=== PATIENT | female | born 1930 | race Caucasian/White ===

== ENCOUNTER 2018-07-12 00:18 | Inpatient (IN) | payer MEDICAID ==
[~2018-07-12] VITALS: Ht 162.6 cm; Wt 66.6 kg
[~2018-07-12 00:18] MED LIST: ASPI-535 PO; ENAL10TA88 PO; [UNRECOGNIZED DRUG - REMARK]
[2018-07-12] MEDS ORDERED: MELA1TAB15 GTB (03:55)
[2018-07-12] MEDS ORDERED: MULT-105 GTB (03:55)
[2018-07-12] MEDS ORDERED: GABA300C16 GTB (03:55)
[2018-07-12] MEDS ORDERED: TRAM50TA GTB (03:55)
[2018-07-12] MEDS ORDERED: TAMS0.4C2 GTB (03:55)
[2018-07-12] MEDS ORDERED: RANI150T5 GTB (03:55)
[2018-07-12] MEDS ORDERED: ACET325T45 GTB (03:55)
[2018-07-12] MEDS ORDERED: ARGI1POW19 GTB (03:55)
[2018-07-12] MEDS ORDERED: DOCU-144 GTB (03:55)
[2018-07-12] MEDS ORDERED: CAPT25TA3 GTB (03:55)
[2018-07-12] MEDS ORDERED: ALEN70TA5 GTB (03:55)
[2018-07-12] MEDS ORDERED: SENN-120 GTB (03:55)
[2018-07-12] MEDS ORDERED: CRAN3875 GTB (03:55)
[2018-07-12] MEDS ORDERED: GLIP2.5T14 GTB (03:55)
[2018-07-12] MEDS ORDERED: METO-429 GTB (03:55)
[2018-07-12] MEDS ORDERED: ONDANSETRON 4 MG INJ IV STA (04:11)
[2018-07-12] MEDS ORDERED: morphine 2 MG INJ IV STA (04:11)
--- NOTE | 2018-07-12 04:38 | HP ---
Date/Time of Note Date/Time of Note DATE: 07/12/18 TIME: 04:31 Assessment/Plan VTE Prophylaxis SCD applied (from Nsg): Yes (Right lower extremity) SCD contraindicated: other Pharmacological prophylaxis: NA/contraindicated Pharm contraindication: surgical contra Lines/Catheters IV Catheter Type (from Nrsg): Saline Lock Assessment/Plan Hospital Course This is a 87-year-old female being admitted to the [facility] floor for: Assessment: Acute on chronic encephalopathy Left foot and second digit dry gangrene/necrosis Leukocytosis History of dementia History of CVA with History of gastrostomy tube History of anemia chronic disease History of hypertension History of history of coronary artery disease Diabetes mellitus History of osteoarthritis History of UTI History of history of necrotic left third and fourth toe status post amputation History of PVD History of atrial fibrillation Plan: -Close monitoring on the [facility] floor -Stat CT of the brain without contrast -Vancomycin and ceftriaxone IV, IV fluid hydration with normal saline -Urgent ultrasound arterial Dopplers and venous Dopplers of the bilateral lower extremities, left foot x-ray -Podiatry and vascular surgery consult -Nutrition consult -EKG -Swallow evaluation -Resume home medications when patient is cleared to swallow. CODE STATUS: DNR/DNI with selective treatment on POLST form TONYA DAUGHTER [phone], I did speak with the daughter at the bedside regarding the plan of care. She also would like to speak with the specialist and she can come in and speak to them and she has left her number if they would like to color. further treatment strategy will be implemented as per the clinical course. Result Diagram: 07/12/18 0209 07/12/18 0209 Results 24hrs Laboratory Tests Test 07/12/18 02:09 07/12/18 02:34 White Blood Count 12.0 H Red Blood Count 3.51 L Hemoglobin 9.9 L Hematocrit 31.7 L Mean Corpuscular Volume 90.3 Mean Corpuscular Hemoglobin 28.2 L Mean Corpuscular Hemoglobin Concent 31.2 L Red Cell Distribution Width 13.2 Platelet Count 352 Mean Platelet Volume 9.6 Immature Granulocytes % 0.800 H Neutrophils % 72.4 Lymphocytes % 17.5 Monocytes % 8.8 Eosinophils % 0.2 Basophils % 0.3 Nucleated Red Blood Cells % 0.0 Immature Granulocytes # 0.090 H Neutrophils # 8.7 H Lymphocytes # 2.1 Monocytes # 1.1 H Eosinophils # 0.0 Basophils # 0.0 Nucleated Red Blood Cells # 0.0 Sodium Level 140 Potassium Level 4.6 Chloride Level 103 Carbon Dioxide Level 32 H Anion Gap 5 Blood Urea Nitrogen 15 Creatinine 0.53 Est Glomerular Filtrat Rate mL/min Glucose Level 123 Calcium Level 9.0 Total Bilirubin 0.3 Direct Bilirubin 0.00 Indirect Bilirubin 0.3 Aspartate Amino Transf (AST/SGOT) 38 Alanine Aminotransferase (ALT/SGPT) 38 Alkaline Phosphatase 88 Total Protein 6.9 Albumin 3.2 L Globulin 3.70 H Albumin/Globulin Ratio 0.86 Lipase 11 L Urine Color YELLOW Urine Clarity CLEAR Urine pH 6.0 Urine Specific [place] 1.019 Urine Ketones NEGATIVE Urine Nitrite NEGATIVE Urine Bilirubin NEGATIVE Urine Urobilinogen NEGATIVE Urine Leukocyte Esterase NEGATIVE Urine Hemoglobin NEGATIVE Urine Glucose NEGATIVE Urine Total Protein NEGATIVE HPI/ROS Admit Date/Time Admit Date/Time Hx of Present Illness Chief complaint: Left foot second toe necrosis The following history was obtained from the retirement records as well as from the daughter at the bedside as patient was not able to provide history given her confusion and dementia This is a 87-year-old female with a past medical history of diabetes mellitus coronary artery disease peripheral vascular disease and CVA resulting in left- sided weakness and dementia who presents from a retirement with the RN noticing second digit toe changing in color. Patient was also noted to have diminished pedal pulses. Patient was complaining of pain on the left foot. Patient recently was admitted to [facility] for left third and fourth toe amputation secondary to necrosis. Daughter reports that when she returned from the hospital she did not have any discoloration of her foot aside from around the toes. However over the last few days she has noticed discoloration of parts of her foot. Patient currently is being treated with ceftriaxone for 10 days. Daughter does report that at baseline patient gets around in a wheelchair and is able to move herself. She also is able to converse though she does have issues with memory given her dementia. However over the last few days patient has been confused. Allergies: NKDA Medications: See JUN ROS Subjective hx not possible: other (Confused, altered) PMH/Family/Social Past Medical History Dementia History of CVA with chronic left sided weakness Gastrostomy tube Anemia chronic disease Hypertension Coronary artery disease Diabetes mellitus Osteoarthritis UTI Necrotic left third and fourth toe status post amputation PVD Atrial fibrillation Functional debility secondary to stroke Coded Allergies: No Known Allergy (Unverified , 06/08/12) Past Surgical History Gastrostomy tube, left toe third and fourth digit amputation Family History Significant Family History: no pertinent family hx Social History Alcohol Use: none Smoking Status: Never smoker Drug Use: none Exam/Review of Systems Vital Signs Vitals Vital Signs Date Temp Pulse Resp B/P (MAP) Pulse Ox O2 O2 Flow FiO2 Time Delivery Rate 07/12/18 64 20 149/48 100 Room Air 04:06 (81) 07/12/18 3.0 03:00 07/12/18 98.1 00:23 Exam Exam General: Patient is currently lying in bed she appears to be moaning, she does open her eyes but she appears confused HEENT: Atraumatic, normocephalic. The pupils are equal, round and reactive. Extraocular motor are intact Neck: Supple with full range of motion. No rigidity or meningismus Chest: Nontender Lungs: Clear to auscultation bilaterally no crackles rales or wheezing Heart: Normal S1-S2, Regular rhythm and rate. No murmur, S3, or S4 Abdomen: Soft , nontender, nondistended , bowel sounds are present. No guarding no rebound tenderness , No masses or organomegaly. No costovertebral temporal angle mass Extremities: Left lower extremity foot shows gangrene of the second digit. There also appears to be signs of dry gangrene/discoloration of the foot on the lateral plantar surface. Skin: Left lower extremity foot shows gangrene of the second digit. There also appears to be signs of dry gangrene/discoloration of the foot on the lateral plantar surface. Vascular: Diminished distal pedal pulses of the left lower extremity Neurologic: Patient appears confused she is moaning at times, further neurological exam was limited given patient's clinical condition SUE RAIN Jul 12, 2018 04:38
[2018-07-12] MEDS ORDERED: ACETAMINOPHEN 650 MG SUPP PR PRN (05:30)
[2018-07-12] MEDS ORDERED: ONDANSETRON 4 MG INJ IV PRN (05:30)
[2018-07-12] MEDS ORDERED: NACL 0.9% 3 ML SYG IV SCH (05:30)
[2018-07-12] MEDS ORDERED: VANCOMYCIN IV PER PHARMACY XX SCH (05:30)
[2018-07-12] MEDS ORDERED: CEFTRIAXONE 1 GM/50 ML (PMX) 50 ML IVPB SCH (06:00)
[2018-07-12 06:01] VITALS: BMI 21.8
[2018-07-12] MEDS: SOD CHLORIDE 0.9% 1,000 ML IV SCH ×2 (06:08→17:11)
[2018-07-12] MEDS: morphine 2 MG INJ IV PRN (06:09)
[2018-07-12] MEDS ORDERED: VANCOMYCIN 1 GM 250 ML IVPB SCH (06:45)
[2018-07-12] MEDS ORDERED: LORAZEPAM 2 MG INJ IV ONE (07:00)
[2018-07-12] MEDS ORDERED: COLLAGENASE 5 GM (UD JAR) TOP PRN (07:30)
[2018-07-12] MEDS ORDERED: PENDING SANTYL ORDER FOR WOUND CARE XX PRN (07:30)
[2018-07-12 07:55] VITALS: BP 180/72; PULSE 67; RESP 18
[2018-07-12 08:20] VITALS: BP 161/78; PULSE 66
[2018-07-12 08:25] VITALS: PULSE 64
[2018-07-12 08:27] VITALS: BP 157/76; PULSE 64
[2018-07-12] MEDS: COLLAGENASE 5 GM (UD JAR) TOP SCH (09:32)
--- NOTE | 2018-07-12 10:09 | RADRPT ---
Vent Rate: 61 bpm RR Interval: 0 msec VT Interval: 154 msec QRS Duration: 122 msec QT Interval: 420 msec QTC Interval: 422 msec P-R-T [place]: 69 - -6 - 52 degrees Normal sinus rhythm Right bundle branch block Possible Lateral infarct , age undetermined Abnormal ECG Electronically Signed By: Tho Sinclair
--- NOTE | 2018-07-12 11:55 | QN ---
Documentation Comment 87-year-old female with history of v PVD, CVA with left-sided weakness, de mentia, diabetes,Left foot gangrene with status post left third/fourth toe amputation, transferred from correction with worsening Left foot gangrene. Patient appears oversedated as she was given Ativan prior to imaging studies because she was combative. Continue monitoring oxygen saturation and provide supplemental oxygen if indicated. Continue wound care. Vascular and podiatry consultation has been called. Continue antimicrobials. Follow-up cultures. Follow-up CT lower extremity/foot ordered. Follow-up vascular studies. Patient has G-tube and per family, she was getting fed orally and G-tube was used only for medications. Speech therapy and nutrition consult for diet recommendation to promote healing. Start appropriate diet per G-tube per product technician recommendations. Case discussed with Dr. Davies. BROCK MONTGOMERY NP Jul 12, 2018 11:55
[2018-07-12 14:44] VITALS: BP 164/73; PULSE 68; RESP 18
[2018-07-12] MEDS: MUPIROCIN 2% 22 GM OINT TOP SCH ×2 (15:39→22:18)
--- NOTE | 2018-07-12 16:50 | CONS ---
DATE OF ADMISSION: 07/12/2018 DATE OF CONSULTATION: 07/12/2018 REASON FOR CONSULTATION: Left foot gangrene. HISTORY OF PRESENT ILLNESS: This is an 87-year-old female who resides at [facility]. She had been hospitalized approximately a week ago with the left foot infection being treated surgically with amputation of 2 toes. At the time of discharge, the extremity had worsening cyanosis. The rhea ent admitted with left foot gangrene. She had been told prior to that vascular intervention not requ ired. She has had radiographs which revealed soft tissue edema status post amputation of left 3rd an d 4th toes, demineralized changes. The patient's daughter is the main historian as patient nonverbal . PAST MEDICAL HISTORY: Includes history of chronic encephalopathy, dementia, CVA, history of gastroto my tube, history of anemia, hypertension, coronary artery disease, diabetes, UTI, PVD, atrial fibrill ation, gangrene of left foot status post amputation of 3rd and 4th toes, also history of a stroke wit h left-sided weakness. PAST SURGICAL HISTORY: Gastrotomy tube, left 3rd and 4th toe amputation. SOCIAL HISTORY: Denies any tobacco, alcohol or illicit drug use. PHYSICAL EXAMINATION: VITAL SIGNS: Temperature is 99.5, pulse is 67, respiratory rate 18, blood pressure is 180/72, pulse ox is 92%. GENERAL: The patient is awake but not responding to questions. She is in the lateral decubitus. EXTREMITIES: Flexion contracture of the knees. Left foot cool. She has got 2 toes amputated on the left foot with cyanotic changes at the level of the ankle, lateral foot, 2nd toe and plantar toes. Pedal pulses and popliteal pulse nonpalpable. Wound cultures pending. LABORATORIES: WBC 12, hemoglobin 9.9, hematocrit 31.7, platelets 352. Sed rate is 84. Sodium 140, potassium 4.6, chloride of 103, CO2 is 32, BUN 15, creatinine 0.53, albumin is 3.2, globulin is 3.7. Brain CT: Atrophy, white matter disease compatible with chronic small vessel ischemia, encephalomal acia, right MCA distribution infarct, chronic cortical/subcortical white matter infarct in the left p arietal lobe. No intracranial hemorrhage. ASSESSMENT: 1. Left foot ischemia. Gangrene of the left 2nd toe with cyanosis involving the plantar foot, later al foot and anterior ankle. 2. Prior amputation of toes. 3. Osteomyelitis. 4. Leukocytosis. 5. Wbeos-pu-dgvotex encephalopathy. 6. Diabetes. 7. History of atrial fibrillation, coronary artery disease. 8. Dementia. PLAN: The patient is seen. Discussed with family. Initiate topical antiseptic precautions. Clinic ally, the patient has worsening cyanotic changes and the presence of non-pedal pulses and at risk for amputation, unclear on prior vascular workup but noninvasive studies ordered. The patient will need angiography to determine the ability for wound healing. Vascular consulted and local and intravenou s antibiotics started. Currently, she is on vancomycin and ceftriaxone. Recommend ID consultation w macy Adame. Further recommendations pending diagnostic imaging studies. Dictated By: GENTRY ZUÑIGA/PROSPER Conf#: [id number] DID#: [id number] CC: SUE RAIN MD;*EndCC*
--- NOTE | 2018-07-12 18:59 | CONS ---
DATE OF ADMISSION: 07/12/2018 DATE OF CONSULTATION: 07/12/2018 REFERRING PHYSICIAN: Dr. Dong Rain. REASON FOR CONSULTATION: Left foot gangrene. HISTORY OF PRESENT ILLNESS: This is an 87-year-old fairly severely demented woman with status post s troke. She has peripheral arterial disease, diabetes, coronary artery disease, hypertension. She crandall s a gastrostomy. She basically was admitted with left foot gangrene. She had gangrene of the second toe and then the toe was amputated a week ago at another hospital and then in the operating room up when the toe was amputated, the third toe next to it became ischemic, so they amputated that as well. Now, the big toe next to that is also ischemic. She has multiple areas of early skin breakdown ove r the dorsum and heel. Her daughter says prior to that, she was actually able to get around. She wa s walking, but she was in a wheelchair and scoots herself around in the wheelchair and was verbal, bu t now she is completely nonverbal, sort of wiggles around and moves without any purpose. It is not c lear if she has pain. Daughter says she asked her and sometimes she says it hurts, sometimes she munguia s not. I was here at the bedside when they did the arterial studies and there is no Doppler signal in the left foot. The right foot, there is a dopplerable DP and PT. She has ischemia on the right, but no wounds and the left is severely ischemic. PAST MEDICAL HISTORY: Significant for stroke, encephalopathy, dementia, diabetes, hypertension, abhijeet pheral arterial disease, coronary artery disease, AFib. MEDICATIONS: Consist of: 1. Ativan 2. Vancomycin. 3. Ceftriaxone. 4. Zofran. 5. Tylenol. 6. Morphine. 7. Vancomycin. ALLERGIES: HE HAS NO KNOWN DRUG ALLERGIES. SOCIAL HISTORY: She is a nonsmoker. She is living in a [facility] facility. PAST SURGICAL HISTORY: Significant for the left third and fourth toe amputation last week and then a gastrostomy tube. FAMILY HISTORY: Noncontributory. REVIEW OF SYSTEMS: She is just not able to provide any history or any review of systems. PHYSICAL EXAMINATION GENERAL: She is an elderly woman. She is very demented. She is not really responsive and is kind of moving around and wiggling her legs purposelessly. NECK: She has 2+ carotid, radial and brachial pulses bilaterally. LUNGS: Clear. HEART: Regular rate and rhythm. ABDOMEN: Soft, nontender, nondistended. EXTREMITIES: She has 2+ femoral pulses bilaterally. I do not feel popliteal, DP or PT pulses in eit her lower extremity. Right foot is warm. There are no wounds or discoloration. On her eft foot, th e third and fourth toe amputation site is very ischemic looking. The plantar surface at the base of the amputation is necrotic. It has thick cyanosis. There are multiple areas of thick cyanosis over the dorsum and the heel. The foot is basically cool and it is warm. Left leg is warm down to the di stal calf, but then the foot itself is cool. Again, the arterial study shows severe ischemia in the left lower extremity. IMPRESSION: 1. Left foot gangrene. I did not think it is salvageable and she is not a revascularization wero te given her severe dementia and nonambulatory status. I had a long talk with her daughter. I have recommended hospice, just painting the foot and the toes with Betadine, allowing it to mummify and ju st keeping her comfortable. I offered the alternative, but I think an above-knee amputation would be better than the below-knee given the sort of purposelessness movements and wiggling around. I think if we did a below-knee amputation, the stump would probably breakdown just from her pushing against the bed, but I offered this as options and the daughter is going to talk to her brother and they will decide. She said the brother does not want to have any further surgery, so I think they are leaning towards hospice care. I am available if there are any further issues. Dictated By: MAYDA PADILLA/PROSPER Conf#: [id number] DID#: [id number] CC: DONG RAIN MD; ASIA GONZALEZ MD;*EndCC*
[2018-07-12 20:08] VITALS: BP 179/76; PULSE 89; RESP 18
[2018-07-12] MEDS: RANITIDINE 150 MG TAB GTB SCH (21:42)
[2018-07-12] MEDS: traMADol 50 MG TAB GTB PRN (21:43)
[2018-07-12] MEDS: AMLODIPINE 5 MG TAB PO SCH (22:17)
[2018-07-12] MEDS: SENNA TAB GTB SCH (22:18)
[2018-07-12] MEDS: PIPER-TAZO 3.375 GM IV (PMX) 100 ML IVPB SCH (23:27)
[2018-07-13] MEDS ORDERED: PIPER-TAZO 3.375 GM IV (PMX) 100 ML IVPB SCH
[2018-07-13] MEDS: morphine 2 MG INJ IV PRN (01:24)
[2018-07-13 02:11] VITALS: BP 134/66; PULSE 115; PULSE 98; RESP 18
[2018-07-13] MEDS: PIPER-TAZO 3.375 GM IV (PMX) 100 ML IVPB SCH ×3 (05:56→21:30)
[2018-07-13] MEDS: SOD CHLORIDE 0.9% 1,000 ML IV SCH ×2 (06:15→18:12)
[2018-07-13 08:04] VITALS: BP 118/55; PULSE 79; RESP 18
[2018-07-13] MEDS: COLLAGENASE 5 GM (UD JAR) TOP SCH (08:23)
[2018-07-13] MEDS: VANCOMYCIN 1 GM 250 ML IVPB SCH (08:23)
[2018-07-13] MEDS: RANITIDINE 150 MG TAB GTB SCH ×2 (08:24→21:18)
[2018-07-13] MEDS: MUPIROCIN 2% 22 GM OINT TOP SCH ×2 (08:24→21:27)
[2018-07-13] MEDS: AMLODIPINE 5 MG TAB PO SCH (08:24)
--- NOTE | 2018-07-13 10:51 | CONS ---
DATE OF ADMISSION: 07/12/2018 DATE OF CONSULTATION: 07/13/2018 TYPE OF CONSULTATION: Infectious Disease. REASON FOR CONSULTATION: Antibiotic management. HISTORY OF PRESENT ILLNESS: The patient is an 87-year-old female who comes in with numerous problems including left foot and second digit dry gangrene, problems include: 1. Acute on chronic encephalopathy. 2. Left foot and second digit dry gangrene with necrosis. 3. Senile dementia. 4. History of cerebrovascular accident. 5. Status post G-tube placement. 6. Anemia of chronic disease. 7. Hypertension. 8. Adult-onset diabetes mellitus. 9. Coronary artery disease. 10. Osteoarthritis. 11. History of urinary tract infection. 12. History of necrotic left 3rd and 4th toe status post amputation. 13. History of peripheral vascular disease. 14. Atrial fibrillation. On admission, the patient's white count was 12,000, hemoglobin and hematocrit 9.9 and 31.7, platelet count 352,000. BUN and creatinine 15/0.53. The patient was started on vancomycin and ceftriaxone an d arterial and vascular surgery consultants were ordered. An urgent ultrasound arterial Doppler's an d venous Doppler's of bilateral lower extremities were ordered. The patient has cerebrovascular acci dent with left-sided weakness, transferred from senior care with worsening left foot gangrene. The patient was seen by Dr. Guerra. He noted left foot ischemia, gangrene of the left second toe, cyano sis involving the plantar foot, lateral foot and anterior ankle, prior amputation of toes, osteomyeli tis, and leukocytosis. The patient has worsening cyanotic changes. She is currently on vancomycin a nd ceftriaxone. PHYSICAL EXAMINATION: VITAL SIGNS: Stable. SKIN: Without generalized rash. HEENT: Within normal limits. NECK: Supple. LYMPH NODES: None palpable. CHEST: Decreased breath sounds at the bases. HEART: Without murmur or gallop. ABDOMEN: Soft, nontender. G-tube in place without induration or erythema. EXTREMITIES: Without cyanosis or clubbing. She has flexion contractures of the knees. Left foot is cool. She has 2 toes amputated on the left foot with cyanotic changes at the level of the ankle on the lateral foot second toe and plantar toes. She had amputation of the third and fourth toes. Puls es are not palpable. RECTAL AND GENITAL: Deferred. NEUROLOGIC: The patient has senile dementia. Moves all extremities. IMPRESSION AND PLAN: Continue on current antibiotic therapy. The patient is a DNR and family is rel uctant to do any further surgery. We will follow along in her care. I will dictate my findings to feliciano cardona hospitalist and to Dr. Guerra. Of note, is the fact that one blood culture grew out gram-positiv e cocci in clusters. We will await the identification that is 04/12. She is currently on vancomycin a nd Zosyn. Dictated By: NEGRITA MOSQUEDA MD, JD/NTS Conf#: [id number] DID#: [id number] CC: GENTRY GUERRA DPM; SUE RAIN MD;*[facility]*
--- NOTE | 2018-07-13 12:11 | PN ---
Date/Time of Note Date/Time of Note DATE: 07/13/18 TIME: 12:10 Assessment/Plan VTE Prophylaxis Risk score (from Ns)>0 risk: 6 SCD applied (from Nsg): Yes Pharmacological prophylaxis: LMWH Lines/Catheters IV Catheter Type (from Nrsg): Saline Lock Urinary Cath still in place: No Assessment/Plan Hospital Course SUBJECTIVE: Awake, lying in bed, no acute distress. OBJECTIVE: Vital signs-see below PHYSICAL EXAM: Constitutional: Elderly, demented female, not in acute distress. Psych: Demented, unable to assess.Restless at times. Head: atraumatic, normocephalic Eyes: nl conjunctiva, nl sclera ENMT: mucosa pink and moist, nl external ears & nose Neck: non-tender, supple Respiratory: clear to auscultation, normal air movement Cardiovascular: nl pulses, regular rate and rhythm Gastrointestinal: non-tender, soft, bowel sounds active in all 4 quadrants. Musculoskeletal/extremities: No DP pulse bilaterally. Left foot 3r/4th toes amputed- site nectrotic/cyanotic extending to heel. no focal defecit. Neurological: Demented. Disrientedx3 Skin: nl turgor ASSESSMENT/PLAN: 87-year-old female with history of diabetes, CAD, hypertension, peripheral artery disease, stroke, dementia, G-tube feeding, admitted with worsening left foot gangrene from a long-term. 1. Left foot gangrene with severe PAD. -Arterial studies with occluded left DP artery, distal left superficial femoral artery with reconstitution of the popliteal artery. -Vascular following and patient is unfortunately not a candidate for any revascularization procedures given her dementia and nonambulatory status. At this time, her limp is not salvageable and option available is above-knee amputation for which family is Not receptive to it. They are considering hospice focused care for which I have placed a social media marketing analyst consult. -Continue supportive care recommended by vascular surgeon by painting the food and toes with Betadine allowing it to mummify and just keep patient comfortable. -WC growing GNR-Cont.abx and f/u final CS -BC 1/2 set growing gram + 2.Severe PAD -Continue to optimize neurovascular status with antihypertensives to keep blood pressure ~140/90, diet, nutrition, exercise, blood glucose control, and antiplatelets/anticoagulation. 3. DMII -Controlled. Continue insulin regimen. 4. Chronic anemia. -Stable H&H. Continue to monitor. 5. Chronic encephalopathy/Dementia -Continue supportive care. 6. History of CVA dysphagia with enteral feeding. -According to patient's family, she was able to have oral gratification, as such I have placed the official speech evaluation to recommend the best diet for her. For now, continue G-tube feeding to meet her nutritional needs. Dietary-to add diet supplement to aid wound healing. 7. Coronary artery disease. -Continue medical management. -Add aspirin 8. Hypertension. Under control. -Continue current Antihypertensive regimen. 9. Peripheral neuropathy. -Resume gabapentin. 10. Constipation -Continue stool softeners and laxatives. 11.Osteoarthritis -resume home meds DVT prophylaxis: Lovenox PUD prophylaxis: Pepcid CODE STATUS: DNR/DNI Diet: G-tube feeding for now until cleared from speech eval to start oral gratification. Disposition: Continue current management. BC / set growing gram positive, f/u final CS. whanau support worker to meet with patient's family regarding hospice discussion and discharge planning based on family decision. Continue antibiotics, follow-up cultures. Patient was seen in collaboration with Result Diagram: 07/13/18 0552 07/13/18 0552 Results 24hrs Laboratory Tests Test 07/13/18 05:52 White Blood Count 12.7 H Red Blood Count 4.07 L Hemoglobin 11.5 L Hematocrit 36.3 L Mean Corpuscular Volume 89.2 Mean Corpuscular Hemoglobin 28.3 L Mean Corpuscular Hemoglobin Concent 31.7 L Red Cell Distribution Width 13.1 Platelet Count 313 Mean Platelet Volume 10.2 Immature Granulocytes % 1.200 H Neutrophils % 78.1 H Lymphocytes % 12.8 L Monocytes % 7.3 Eosinophils % 0.3 Basophils % 0.3 Nucleated Red Blood Cells % 0.0 Immature Granulocytes # 0.150 H Neutrophils # 9.9 H Lymphocytes # 1.6 Monocytes # 0.9 Eosinophils # 0.0 Basophils # 0.0 Nucleated Red Blood Cells # 0.0 Sodium Level 137 Potassium Level 4.1 Chloride Level 101 Carbon Dioxide Level 27 Anion Gap 9 Blood Urea Nitrogen 12 Creatinine 0.53 Est Glomerular Filtrat Rate mL/min Glucose Level 158 Hemoglobin A1c 6.3 H Calcium Level 9.1 Total Bilirubin 0.3 Direct Bilirubin 0.00 Indirect Bilirubin 0.3 Aspartate Amino Transf (AST/SGOT) 52 H Alanine Aminotransferase (ALT/SGPT) 36 Alkaline Phosphatase 108 Total Protein 7.2 Albumin 3.4 Globulin 3.80 H Albumin/Globulin Ratio 0.89 Triglycerides Level 75 Cholesterol Level 140 LDL Cholesterol, Calculated 87 HDL Cholesterol 38 Cholesterol/HDL Ratio 3.6 Thyroid Stimulating Hormone (TSH) 1.720 Exam/Review of Systems Exam Vitals Vital Signs Date Temp Pulse Resp B/P (MAP) Pulse Ox O2 O2 Flow FiO2 Time Delivery Rate 07/13/18 98.5 79 18 118/55 96 Room Air 08:04 (76) 07/12/18 3.0 03:00 Intake and Output 07/12/18 07/12/18 07/13/18 1515:00 23:00 07:00 IntakeIntake Total 20 ml 200 ml BalanceBalance 20 ml 200 ml Results Results 24hrs Laboratory Tests Test 07/13/18 05:52 White Blood Count 12.7 H Red Blood Count 4.07 L Hemoglobin 11.5 L Hematocrit 36.3 L Mean Corpuscular Volume 89.2 Mean Corpuscular Hemoglobin 28.3 L Mean Corpuscular Hemoglobin Concent 31.7 L Red Cell Distribution Width 13.1 Platelet Count 313 Mean Platelet Volume 10.2 Immature Granulocytes % 1.200 H Neutrophils % 78.1 H Lymphocytes % 12.8 L Monocytes % 7.3 Eosinophils % 0.3 Basophils % 0.3 Nucleated Red Blood Cells % 0.0 Immature Granulocytes # 0.150 H Neutrophils # 9.9 H Lymphocytes # 1.6 Monocytes # 0.9 Eosinophils # 0.0 Basophils # 0.0 Nucleated Red Blood Cells # 0.0 Sodium Level 137 Potassium Level 4.1 Chloride Level 101 Carbon Dioxide Level 27 Anion Gap 9 Blood Urea Nitrogen 12 Creatinine 0.53 Est Glomerular Filtrat Rate mL/min Glucose Level 158 Hemoglobin A1c 6.3 H Calcium Level 9.1 Total Bilirubin 0.3 Direct Bilirubin 0.00 Indirect Bilirubin 0.3 Aspartate Amino Transf (AST/SGOT) 52 H Alanine Aminotransferase (ALT/SGPT) 36 Alkaline Phosphatase 108 Total Protein 7.2 Albumin 3.4 Globulin 3.80 H Albumin/Globulin Ratio 0.89 Triglycerides Level 75 Cholesterol Level 140 LDL Cholesterol, Calculated 87 HDL Cholesterol 38 Cholesterol/HDL Ratio 3.6 Thyroid Stimulating Hormone (TSH) 1.720 Medications Medication Current Medications Sodium Chloride 1,000 ml @ 80 mls/hr [id number] IV Last administered on 07/12/18 06:08; Admin Dose 80 MLS/HR; Start 07/12/18 at 05:15 IV Flush (NS 3 ml) 3 ml PER PROTOCOL IV ; Start 07/12/18 at 05:30 Ondansetron HCl (Zofran Inj) 4 mg Q6H PRN IV NAUSEA/VOMITING; Start 07/12/18 at 05:30 Acetaminophen (Tylenol Supp) 650 mg Q6H PRN [place] .PAIN 1-3 OR TEMP; Start 07/12/18 at 05:30 Morphine Sulfate (morphine) 1 mg Q4H PRN IV .SEVERE PAIN 7-10 Last administered on 07/13/18 01:24; Admin Dose 1 MG; Start 07/12/18 at 05:30 Vancomycin HCl (Vanco Iv Per Pharmacy) VANCOMYCIN PER PHARMACY PER PROTOCOL XX ; Start 07/12/18 at 05:30 Miscellaneous Information (Pending Santyl Order For Wound Care) This patient crandall... PRN PRN XX WOUND CARE; Start 07/12/18 at 07:30 Collagenase (Santyl) 1 applic DAILY TOP Last administered on 07/13/18 08:23; Admin Dose 1 APPLIC; Start 07/12/18 at 09:00 Collagenase (Santyl) 1 applic PRN PRN TOP WHEN SOILED; Start 07/12/18 at 07:30 Mupirocin (Bactroban) 1 applic BID TOP Last administered on 07/13/18 08:24; Admin Dose 1 APPLIC; Start 07/12/18 at 13:30 Vancomycin HCl 250 ml @ 125 mls/hr Q24H IVPB Last administered on 07/13/18 08:23; Admin Dose 125 MLS/HR; Start 07/13/18 at 08:00 Captopril (Capoten) 25 mg BID GTB Last administered on 07/13/18 08:24; Admin Dose 25 MG; Start 07/12/18 at 21:00 Ranitidine HCl (Zantac) 150 mg BID GTB Last administered on 07/13/18 08:24; Admin Dose 150 MG; Start 07/12/18 at 21:00 Senna (Senokot) 2 tab QHS GTB Last administered on 4/3/19at 22:18; Admin Dose 2 TAB; Start 07/12/18 at 21:00 Tramadol HCl (Ultram) 50 mg Q12 PRN GTB PAIN Last administered on 07/12/18at 21:43; Admin Dose 50 MG; Start 07/12/18 at 20:30 Amlodipine Besylate (Norvasc) 5 mg DAILY PO Last administered on 07/13/18 08:24; Admin Dose 5 MG; Start 07/12/18 at 22:00 Piperacillin Sod/ Tazobactam Sod 100 ml @ 200 mls/hr Q8 IVPB Last administered on 07/13/18at 05:56; Admin Dose 200 MLS/HR; Start 07/12/18 at 22:00 BROCK MONTGOMERY NP Jul 13, 2018 12:11
[2018-07-13] MEDS: ASPIRIN 81 MG TAB PO SCH (13:56)
[2018-07-13] MEDS: GABAPENTIN 300 MG CAP GTB SCH ×2 (13:56→21:19)
[2018-07-13 14:36] VITALS: BP 169/66; PULSE 79; RESP 20
[2018-07-13 14:53] VITALS: BP 123/59
[2018-07-13 20:05] VITALS: BP 110/53; PULSE 60; RESP 16
[2018-07-13] MEDS ORDERED: DOCUSATE SODIUM 100 MG CAP PO SCH (21:00)
[2018-07-13] MEDS: SENNA TAB GTB SCH (21:18)
[2018-07-13] MEDS: FAMOTIDINE 20 MG TAB GTB SCH (21:19)
[2018-07-13] MEDS: METOPROLOL 50 MG TAB GTB SCH (21:21)
[2018-07-14 02:00] VITALS: BP 161/68; PULSE 58; RESP 18
[2018-07-14 03:00] VITALS: BP 143/64; PULSE 59; RESP 18
[2018-07-14] MEDS: SOD CHLORIDE 0.9% 1,000 ML IV SCH ×2 (03:14→19:45)
[2018-07-14] MEDS: PIPER-TAZO 3.375 GM IV (PMX) 100 ML IVPB SCH ×2 (06:00→08:34)
[2018-07-14] MEDS: traMADol 50 MG TAB GTB PRN (06:17)
[2018-07-14] MEDS: GABAPENTIN 300 MG CAP GTB SCH ×3 (06:17→21:27)
[2018-07-14 08:00] VITALS: BP 158/66; PULSE 70; RESP 20
[2018-07-14] MEDS: DOCUSATE SODIUM 10 MG/ML (10ML CUP) GTB SCH ×2 (08:31→21:27)
[2018-07-14] MEDS: ENOXAPARIN 30 MG/0.3 ML SYG SC SCH (08:31)
[2018-07-14] MEDS: ZINC SULFATE 220 MG CAP GTB SCH (08:34)
[2018-07-14] MEDS: ASCORBIC ACID 500 MG TAB GTB SCH (08:34)
[2018-07-14] MEDS: METOPROLOL 50 MG TAB GTB SCH ×2 (08:35→21:29)
[2018-07-14] MEDS: AMLODIPINE 5 MG TAB PO SCH (08:35)
[2018-07-14] MEDS: MULTIVITAMINS/MINERALS TAB PO SCH (08:35)
[2018-07-14] MEDS: ASPIRIN 81 MG TAB PO SCH (08:35)
[2018-07-14] MEDS: RANITIDINE 150 MG TAB GTB SCH ×2 (08:35→21:27)
[2018-07-14] MEDS: COLLAGENASE 5 GM (UD JAR) TOP SCH (08:36)
[2018-07-14] MEDS: MUPIROCIN 2% 22 GM OINT TOP SCH ×2 (08:36→22:40)
[2018-07-14] MEDS: VANCOMYCIN 1 GM 250 ML IVPB SCH (09:41)
[2018-07-14] MEDS ORDERED: LIDOCAINE 1% (MPF) 5 ML VIAL SC ONE (12:00)
--- NOTE | 2018-07-14 12:02 | PN ---
Date/Time of Note Date/Time of Note DATE: 07/14/18 TIME: 11:46 Assessment/Plan VTE Prophylaxis Risk score (from Ns)>0 risk: 5 SCD applied (from Ns): Yes Pharmacological prophylaxis: LMWH Lines/Catheters IV [facility] Type [facility]from [facility] Saline Lock Urinary Cath still in place: No Assessment/Plan Hospital Course SUBJECTIVE: Awake, lying in bed, no acute distress. OBJECTIVE: Vital signs-see below PHYSICAL EXAM: Constitutional: Elderly, demented female, not in acute distress. Psych: Demented, unable to assess.Restless at times. Head: atraumatic, normocephalic Eyes: nl conjunctiva, nl sclera ENMT: mucosa pink and moist, nl external ears & nose Neck: non-tender, supple Respiratory: clear to auscultation, normal air movement Cardiovascular: nl pulses, regular rate and rhythm Gastrointestinal: non-tender, soft, bowel sounds active in all 4 quadrants. Musculoskeletal/extremities: No DP pulse bilaterally. Left foot 3r/4th toes amputed- site nectrotic/cyanotic extending to heel. no focal defecit. Neurological: Demented. Disrientedx3 Skin: nl turgor ASSESSMENT/PLAN: 87-year-old female with history of diabetes, CAD, hypertension, peripheral artery disease, stroke, dementia, G-tube feeding, admitted with worsening left foot gangrene from a detention. 1. Left foot gangrene with severe PAD. -Arterial studies with occluded left DP artery, distal left superficial femoral artery with reconstitution of the popliteal artery. -Vascular following and patient is unfortunately not a candidate for any revascularization procedures given her dementia and nonambulatory status. At this time, her limp is not salvageable and option available is above-knee amputation for which family is Not receptive to it. They are considering hospice focused care -Continue supportive care recommended by vascular surgeon by painting the food and toes with Betadine allowing it to mummify and just keep patient comfortable. -WC w/multidrug resistant enterococcus/proteus M=>ID managing antimicrobials -BC growing staph 2.Sepsis w/staph bacteremia -cont.abx and follow cultures 3.Severe PAD -See #1 -Continue to optimize neurovascular status with antihypertensives to keep blood pressure ~140/90, diet, nutrition, exercise, blood glucose control, and antiplatelets/anticoagulation. 4. DMII -Controlled. Continue insulin regimen. 5. Chronic anemia. -Stable H&H. Continue to monitor. 6. Chronic encephalopathy/Dementia -Continue supportive care. 7. History of CVA dysphagia with enteral feeding. -Failed ST evaluation. Continue G-tube feeding. -cont.vit supplements 8. Coronary artery disease. -Continue medical management. -cont. aspirin 9. Hypertension. Under control. -Continue current Antihypertensive regimen. 10. Peripheral neuropathy. -cont. gabapentin. 11. Constipation -Continue stool softeners and laxatives. 12.Osteoarthritis -cont home meds DVT prophylaxis: Lovenox PUD prophylaxis: Pepcid CODE STATUS: DNR/DNI Diet: G-tube feeding Disposition: Continue current management. BC both sets growing staph. Follow-up final cultures. I had a lengthy discussion with patient's daughter Ralph who is deciding on hospice focused care which they will get back to us by tomorrow. For now continue current management. PICC line insertion for antibiotics and pain meds. Patient was seen in collaboration with Result Diagram: 07/14/18 0501 07/14/18 0501 Results 24hrs Laboratory Tests Test 07/14/18 05:01 White Blood Count 11.8 H Red Blood Count 3.59 L Hemoglobin 10.0 L Hematocrit 32.6 L Mean Corpuscular Volume 90.8 Mean Corpuscular Hemoglobin 27.9 L Mean Corpuscular Hemoglobin Concent 30.7 L Red Cell Distribution Width 13.2 Platelet Count 315 Mean Platelet Volume 10.3 Immature Granulocytes % 0.800 H Neutrophils % 75.8 Lymphocytes % 15.1 Monocytes % 7.4 Eosinophils % 0.6 Basophils % 0.3 Nucleated Red Blood Cells % 0.0 Immature Granulocytes # 0.090 H Neutrophils # 9.0 H Lymphocytes # 1.8 Monocytes # 0.9 Eosinophils # 0.1 Basophils # 0.0 Nucleated Red Blood Cells # 0.0 Sodium Level 140 Potassium Level 4.2 Chloride Level 105 Carbon Dioxide Level 31 Anion Gap 4 L Blood Urea Nitrogen 15 Creatinine 0.53 Est Glomerular Filtrat Rate mL/min Glucose Level 175 Calcium Level 8.1 L Total Bilirubin 0.2 Direct Bilirubin 0.00 Indirect Bilirubin 0.2 Aspartate Amino Transf (AST/SGOT) 53 H Alanine Aminotransferase (ALT/SGPT) 49 Alkaline Phosphatase 96 Total Protein 6.3 Albumin 2.9 L Globulin 3.40 H Albumin/Globulin Ratio 0.85 Exam/Review of Systems Exam Vitals Vital Signs Date Temp Pulse Resp B/P (MAP) Pulse Ox O2 O2 Flow FiO2 Time Delivery Rate 07/14/18 98.6 70 20 158/66 96 08:00 (96) 07/13/18 Room Air 14:36 07/12/18 3.0 03:00 Intake and Output 07/13/18 07/13/18 07/14/18 1515:00 23:00 07:00 IntakeIntake Total 350 ml 1540 ml BalanceBalance 350 ml 1540 ml Results Results 24hrs Laboratory Tests Test 07/14/18 05:01 White Blood Count 11.8 H Red Blood Count 3.59 L Hemoglobin 10.0 L Hematocrit 32.6 L Mean Corpuscular Volume 90.8 Mean Corpuscular Hemoglobin 27.9 L Mean Corpuscular Hemoglobin Concent 30.7 L Red Cell Distribution Width 13.2 Platelet Count 315 Mean Platelet Volume 10.3 Immature Granulocytes % 0.800 H Neutrophils % 75.8 Lymphocytes % 15.1 Monocytes % 7.4 Eosinophils % 0.6 Basophils % 0.3 Nucleated Red Blood Cells % 0.0 Immature Granulocytes # 0.090 H Neutrophils # 9.0 H Lymphocytes # 1.8 Monocytes # 0.9 Eosinophils # 0.1 Basophils # 0.0 Nucleated Red Blood Cells # 0.0 Sodium Level 140 Potassium Level 4.2 Chloride Level 105 Carbon Dioxide Level 31 Anion Gap 4 L Blood Urea Nitrogen 15 Creatinine 0.53 Est Glomerular Filtrat Rate mL/min Glucose Level 175 Calcium Level 8.1 L Total Bilirubin 0.2 Direct Bilirubin 0.00 Indirect Bilirubin 0.2 Aspartate Amino Transf (AST/SGOT) 53 H Alanine Aminotransferase (ALT/SGPT) 49 Alkaline Phosphatase 96 Total Protein 6.3 Albumin 2.9 L Globulin 3.40 H Albumin/Globulin Ratio 0.85 Medications Medication Current Medications Sodium Chloride 1,000 ml @ 80 mls/hr [id number] IV Last administered on 07/14/18at 03:14; Admin Dose 80 MLS/HR; Start 07/12/18 at 05:15 IV Flush (NS 3 ml) 3 ml PER PROTOCOL IV ; Start 07/12/18 at 05:30 Ondansetron HCl (Zofran Inj) 4 mg Q6H PRN IV NAUSEA/VOMITING; Start 07/12/18 at 05:30 Acetaminophen (Tylenol Supp) 650 mg Q6H PRN [place] .PAIN 1-3 OR TEMP; Start 07/12/18 at 05:30 Morphine Sulfate (morphine) 1 mg Q4H PRN IV .SEVERE PAIN 7-10 Last administered on 07/13/18 01:24; Admin Dose 1 MG; Start 07/12/18 at 05:30 Vancomycin HCl (Vanco Iv Per Pharmacy) VANCOMYCIN PER PHARMACY PER PROTOCOL XX ; Start 07/12/18 at 05:30 Miscellaneous Information (Pending Santyl Order For Wound Care) This patient crandall... PRN PRN XX WOUND CARE; Start 07/12/18 at 07:30 Collagenase (Santyl) 1 applic DAILY TOP Last administered on 07/14/18 08:36; Admin Dose 1 APPLIC; Start 07/12/18 at 09:00 Collagenase (Santyl) 1 applic PRN PRN TOP WHEN SOILED; Start 07/12/18 at 07:30 Mupirocin (Bactroban) 1 applic BID TOP Last administered on 07/14/18 08:36; Admin Dose 1 APPLIC; Start 07/12/18 at 13:30 Vancomycin HCl 250 ml @ 125 mls/hr Q24H IVPB Last administered on 07/14/18 09:41; Admin Dose 125 MLS/HR; Start 07/13/18 at 08:00 Captopril (Capoten) 25 mg BID GTB Last administered on 07/14/18 08:36; Admin Dose 25 MG; Start 07/12/18 at 21:00 Ranitidine HCl (Zantac) 150 mg BID GTB Last administered on 07/14/18 08:35; Admin Dose 150 MG; Start 07/12/18 at 21:00 Senna (Senokot) 2 tab QHS GTB Last administered on 07/13/18 21:18; Admin Dose 2 TAB; Start 07/12/18 at 21:00 Tramadol HCl (Ultram) 50 mg Q12 PRN GTB PAIN Last administered on 07/14/18 06:17; Admin Dose 50 MG; Start 07/12/18 at 20:30 Amlodipine Besylate (Norvasc) 5 mg DAILY PO Last administered on 07/14/18 08:35; Admin Dose 5 MG; Start 07/12/18 at 22:00 Piperacillin Sod/ Tazobactam Sod 100 ml @ 200 mls/hr Q8 IVPB Last administered on 07/14/18 08:34; Admin Dose 200 MLS/HR; Start 07/12/18 at 22:00 Aspirin (Aspirin) 81 mg DAILY PO Last administered on 07/14/18 08:35; Admin Dose 81 MG; Start 07/13/18 at 12:30 Alendronate Sodium (Fosamax) 70 mg We@0655 PO ; Start 07/19/18 at 06:55 Gabapentin (Neurontin) 300 mg Q8 GTB Last administered on 07/14/18 06:17; Admin Dose 300 MG; Start 07/13/18 at 14:00 Metoprolol Tartrate (Lopressor) 50 mg BID GTB Last administered on 07/14/18 08:35; Admin Dose 50 MG; Start 07/13/18 at 21:00 Multivitamins/ Minerals (Theragran-M) 1 tab DAILY PO Last administered on 07/14/18 08:35; Admin Dose 1 TAB; Start 07/14/18 at 09:00 Enoxaparin Sodium (Lovenox) 30 mg DAILY SC Last administered on 07/14/18 08:31; Admin Dose 30 MG; Start 07/14/18 at 09:00 Famotidine (Pepcid) 20 mg HS GTB Last administered on 07/13/18 21:19; Admin Dose 20 MG; Start 07/13/18 at 21:00 Ascorbic Acid (Vitamin C) 500 mg DAILY GTB Last administered on 07/14/18 08:34; Admin Dose 500 MG; Start 07/14/18 at 09:00 Zinc Sulfate (Zinc Sulfate) 220 mg DAILY GTB Last administered on 07/14/18 08:34; Admin Dose 220 MG; Start 07/14/18 at 09:00 Docusate Sodium (Colace Liquid Cup) 100 mg BID GTB Last administered on 9at 08:31; Admin Dose 100 MG; Start 07/14/18 at 09:00 BROCK MONTGOMERY NP Jul 14, 2018 11:57
[2018-07-14 14:00] VITALS: BP 136/84; PULSE 78; RESP 18
--- NOTE | 2018-07-14 14:43 | CONS ---
Assessment/Plan Assessment/Plan Hospital Course (Demo Recall) Patient is awake in no distress afebrile, getting a PICC line. WBC 11.8 no shift no bands. BUN 15 creatinine 0.53. Microbiology: Blood culture growing staph suspicious left foot wound culture growing Proteus and enterococcus species Antimicrobials vancomycin Zosyn Physical examination: Well-developed fragile elderly woman in no distress. Head atraumatic normocephalic sclera nonicteric vehicle mucosa dry neck is supple chest rise symmetrical breath sounds diminished bases. Heart S1-S2. Abdomen soft bowel sounds present. Extremities with bilateral lower extremities dressing intact Assessment: 1. Systemic inflammatory response syndrome 2. Left foot gangrene 3. Severe peripheral arterial disease 4. Diabetes 5. History of CVA Plan: Change Zosyn to cefepime, continue vancomycin, repeat blood cultures, follow podiatry and vascular recommendations, patient is a note candidate for revascularization Consultation Date/Type/Reason Admit Date/Time Jul 12, 2018 at 04:13 Initial Consult Date Type of Consult id Date/Time of Note DATE: 07/14/18 TIME: 14:43 Exam/Review of Systems Exam Vitals Vital Signs Date Temp Pulse Resp B/P (MAP) Pulse Ox O2 O2 Flow FiO2 Time Delivery Rate 07/14/18 98.6 70 20 158/66 96 08:00 (96) 07/13/18 Room Air 14:36 07/12/18 3.0 03:00 Intake and Output 07/13/18 07/13/18 07/14/18 1515:00 23:00 07:00 IntakeIntake Total 350 ml 1540 ml BalanceBalance 350 ml 1540 ml Results Result Diagram: 07/14/18 0501 07/14/18 0501 Results 24hrs Laboratory Tests Test 07/14/18 05:01 White Blood Count 11.8 H Red Blood Count 3.59 L Hemoglobin 10.0 L Hematocrit 32.6 L Mean Corpuscular Volume 90.8 Mean Corpuscular Hemoglobin 27.9 L Mean Corpuscular Hemoglobin Concent 30.7 L Red Cell Distribution Width 13.2 Platelet Count 315 Mean Platelet Volume 10.3 Immature Granulocytes % 0.800 H Neutrophils % 75.8 Lymphocytes % 15.1 Monocytes % 7.4 Eosinophils % 0.6 Basophils % 0.3 Nucleated Red Blood Cells % 0.0 Immature Granulocytes # 0.090 H Neutrophils # 9.0 H Lymphocytes # 1.8 Monocytes # 0.9 Eosinophils # 0.1 Basophils # 0.0 Nucleated Red Blood Cells # 0.0 Sodium Level 140 Potassium Level 4.2 Chloride Level 105 Carbon Dioxide Level 31 Anion Gap 4 L Blood Urea Nitrogen 15 Creatinine 0.53 Est Glomerular Filtrat Rate mL/min Glucose Level 175 Calcium Level 8.1 L Total Bilirubin 0.2 Direct Bilirubin 0.00 Indirect Bilirubin 0.2 Aspartate Amino Transf (AST/SGOT) 53 H Alanine Aminotransferase (ALT/SGPT) 49 Alkaline Phosphatase 96 Total Protein 6.3 Albumin 2.9 L Globulin 3.40 H Albumin/Globulin Ratio 0.85 Medications Medication Current Medications Sodium Chloride 1,000 ml @ 80 mls/hr [id number] IV Last administered on 07/14/18at 03:14; Admin Dose 80 MLS/HR; Start 07/12/18 at 05:15 IV Flush (NS 3 ml) 3 ml PER PROTOCOL IV ; Start 07/12/18 at 05:30 Ondansetron HCl (Zofran Inj) 4 mg Q6H PRN IV NAUSEA/VOMITING; Start 07/12/18 at 05:30 Acetaminophen (Tylenol Supp) 650 mg Q6H PRN [place] .PAIN 1-3 OR TEMP; Start 07/12/18 at 05:30 Morphine Sulfate (morphine) 1 mg Q4H PRN IV .SEVERE PAIN 7-10 Last administered on 07/13/18at 01:24; Admin Dose 1 MG; Start 07/12/18 at 05:30 Vancomycin HCl (Vanco Iv Per Pharmacy) VANCOMYCIN PER PHARMACY PER PROTOCOL XX ; Start 07/12/18 at 05:30 Miscellaneous Information (Pending Santyl Order For Wound Care) This patient crandall... PRN PRN XX WOUND CARE; Start 07/12/18 at 07:30 Collagenase (Santyl) 1 applic DAILY TOP Last administered on 07/14/18at 08:36; A dmin Dose 1 APPLIC; Start 07/12/18 at 09:00 Collagenase (Santyl) 1 applic PRN PRN TOP WHEN SOILED; Start 07/12/18 at 07:30 Mupirocin (Bactroban) 1 applic BID TOP Last administered on 07/14/18at 08:36; A dmin Dose 1 APPLIC; Start 07/12/18 at 13:30 Vancomycin HCl 250 ml @ 125 mls/hr Q24H IVPB Last administered on 07/14/18 09:41; Admin Dose 125 MLS/HR; Start 07/13/18 at 08:00 Captopril (Capoten) 25 mg BID GTB Last administered on 07/14/18 08:36; Admin Dose 25 MG; Start 07/12/18 at 21:00 Ranitidine HCl (Zantac) 150 mg BID GTB Last administered on 07/14/18 08:35; Admin Dose 150 MG; Start 07/12/18 at 21:00 Senna (Senokot) 2 tab QHS GTB Last administered on 07/13/18 21:18; Admin Dose 2 TAB; Start 07/12/18 at 21:00 Tramadol HCl (Ultram) 50 mg Q12 PRN GTB PAIN Last administered on 07/14/18 06:17; Admin Dose 50 MG; Start 07/12/18 at 20:30 Amlodipine Besylate (Norvasc) 5 mg DAILY PO Last administered on 07/14/18 08:35; Admin Dose 5 MG; Start 07/12/18 at 22:00 Piperacillin Sod/ Tazobactam Sod 100 ml @ 200 mls/hr Q8 IVPB Last administered on 07/14/18 08:34; Admin Dose 200 MLS/HR; Start 07/12/18 at 22:00 Aspirin (Aspirin) 81 mg DAILY PO Last administered on 07/14/18 08:35; Admin Dose 81 MG; Start 07/13/18 at 12:30 Alendronate Sodium (Fosamax) 70 mg We@0655 PO ; Start 07/19/18 at 06:55 Gabapentin (Neurontin) 300 mg Q8 GTB Last administered on 07/14/18 14:40; Admin Dose 300 MG; Start 07/13/18 at 14:00 Metoprolol Tartrate (Lopressor) 50 mg BID GTB Last administered on 07/14/18 08:35; Admin Dose 50 MG; Start 07/13/18 at 21:00 Multivitamins/ Minerals (Theragran-M) 1 tab DAILY PO Last administered on 07/14/18 08:35; Admin Dose 1 TAB; Start 07/14/18 at 09:00 Enoxaparin Sodium (Lovenox) 30 mg DAILY SC Last administered on 07/14/18 08:31; Admin Dose 30 MG; Start 07/14/18 at 09:00 Famotidine (Pepcid) 20 mg HS GTB Last administered on 07/13/18 21:19; Admin Dose 20 MG; Start 07/13/18 at 21:00 Ascorbic Acid (Vitamin C) 500 mg DAILY GTB Last administered on 07/14/18 08:34; Admin Dose 500 MG; Start 07/14/18 at 09:00 Zinc Sulfate (Zinc Sulfate) 220 mg DAILY GTB Last administered on 07/14/18 08: 34; Admin Dose 220 MG; Start 07/14/18 at 09:00 Docusate Sodium (Colace Liquid Cup) 100 mg BID GTB Last administered on 07/14/18 08:31; Admin Dose 100 MG; Start 07/14/18 at 09:00 Miscellaneous Information (*Rx Drug Level Order Reminder*) VANCO TROUGH ON 07/15 @ 0,700 0700 ONCE XX ; Start 07/15/18 at 07:00; Stop 07/15/18 at 07:01 FRANCO MARTINEZ NP Jul 14, 2018 14:43
[2018-07-14 20:34] VITALS: BP 137/71; PULSE 66; RESP 20
[2018-07-14] MEDS: CEFEPIME 1GM/50 ML (PMX) 50 ML IVPB SCH (21:27)
[2018-07-14] MEDS: SENNA TAB GTB SCH (21:27)
[2018-07-14] MEDS: FAMOTIDINE 20 MG TAB GTB SCH (21:28)
[2018-07-15] MEDS: SOD CHLORIDE 0.9% 1,000 ML IV SCH ×2 (01:19→20:36)
[2018-07-15 02:00] VITALS: BP 166/78; PULSE 63; RESP 18
[2018-07-15] MEDS: hydrALAzine 20 MG INJ IV PRN (05:41)
[2018-07-15] MEDS: GABAPENTIN 300 MG CAP GTB SCH ×3 (05:53→21:15)
[2018-07-15 07:15] VITALS: BP 178/74; PULSE 68; RESP 18
[2018-07-15] MEDS: VANCOMYCIN 1 GM 250 ML IVPB SCH (09:38)
[2018-07-15] MEDS: DOCUSATE SODIUM 10 MG/ML (10ML CUP) GTB SCH ×2 (09:39→20:38)
[2018-07-15] MEDS: MULTIVITAMINS/MINERALS TAB PO SCH (09:39)
[2018-07-15] MEDS: ZINC SULFATE 220 MG CAP GTB SCH (09:39)
[2018-07-15] MEDS: ASPIRIN 81 MG TAB PO SCH (09:39)
[2018-07-15] MEDS: METOPROLOL 50 MG TAB GTB SCH ×2 (09:39→20:43)
[2018-07-15] MEDS: ENOXAPARIN 30 MG/0.3 ML SYG SC SCH (09:40)
[2018-07-15] MEDS: RANITIDINE 150 MG TAB GTB SCH ×2 (09:41→20:38)
[2018-07-15] MEDS: COLLAGENASE 5 GM (UD JAR) TOP SCH (09:41)
[2018-07-15] MEDS: ASCORBIC ACID 500 MG TAB GTB SCH (09:41)
[2018-07-15] MEDS: AMLODIPINE 5 MG TAB PO SCH (09:41)
[2018-07-15] MEDS: MUPIROCIN 2% 22 GM OINT TOP SCH ×2 (09:41→20:42)
--- NOTE | 2018-07-15 09:57 | PN ---
Date/Time of Note Date/Time of Note DATE: 07/15/18 TIME: 09:52 Assessment/Plan VTE Prophylaxis Risk score (from Ns)>0 risk: 9 SCD applied (from Ns): Yes Pharmacological prophylaxis: LMWH Lines/Catheters [facility] (from [facility] PICC Line Central line still needed: Yes Urinary Cath still in place: No Assessment/Plan Problems: (1) Dementia Status: Chronic Comment: Patient has advanced dementia and therefore this should give us some degree of guidance in the long-term treatments. In addition the family is in the process of deciding about comfort care. There is a note in the chart that said that she was on hospice at the facility she came from but I am not certain if I am reading that properly Qualifiers: Dementia type: unspecified type Dementia behavioral disturbance: without behavioral disturbance Qualified Codes: F03.90 - Unspecified dementia without behavioral disturbance (2) Gangrene of toe of left foot Status: Acute Comment: As per vascular surgery and podiatry. No aggressive intervention is indicated as it would be futile in my opinion (3) Peripheral vascular disease due to secondary diabetes mellitus Status: Chronic Comment: Noted. No intervention is contemplated by vascular surgery given the totality of the situation (4) Essential hypertension Status: Chronic Comment: Blood pressure is rising. 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 I am not sure that the gabapentin is doing a lot of benefit for this patient (7) Osteoporosis Status: Chronic Comment: Given the totality of the situation and nonambulatory patient with significant peripheral vascular disease the alendronate is not offering any b enefits. We will discontinue this Qualifiers: Osteoporosis type: age-related Presence of current pathological fracture: without current pathological fracture Qualified Codes: M81.0 - Age-related osteoporosis without current pathological fracture (8) Atrial fibrillation Status: Chronic Comment: Noted. 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 (10) Diabetes mellitus type 2 in nonobese Status: Chronic Comment: Adequate glycemic control (11) Coronary artery disease Status: Chronic Comment: Quiescent at this time Qualifiers: Coronary Disease-Associated Artery/Lesion type: [place] artery [place] vs. transplanted heart: [place] heart Associated angina: without angina Qualified Codes: I25.10 - Atherosclerotic heart disease of [place] coronary artery without angina pectoris Result Diagram: 07/15/18 0752 07/15/18 0752 Results 24hrs Laboratory Tests Test 07/15/18 07:52 White Blood Count 13.4 H Red Blood Count 3.62 L Hemoglobin 10.1 L Hematocrit 33.4 L Mean Corpuscular Volume 92.3 Mean Corpuscular Hemoglobin 27.9 L Mean Corpuscular Hemoglobin Concent 30.2 L Red Cell Distribution Width 13.3 Platelet Count 326 Mean Platelet Volume 10.1 Immature Granulocytes % 0.900 H Neutrophils % 82.4 H Lymphocytes % 10.7 L Monocytes % 5.5 Eosinophils % 0.1 Basophils % 0.4 Nucleated Red Blood Cells % 0.0 Immature Granulocytes # 0.120 H Neutrophils # 11.0 H Lymphocytes # 1.4 Monocytes # 0.7 Eosinophils # 0.0 Basophils # 0.1 Nucleated Red Blood Cells # 0.0 Sodium Level 139 Potassium Level 4.2 Chloride Level 105 Carbon Dioxide Level 24 Anion Gap 10 # Blood Urea Nitrogen 15 Creatinine 0.39 L Est Glomerular Filtrat Rate mL/min Glucose Level 181 Calcium Level 8.4 Total Bilirubin 0.1 L Direct Bilirubin 0.00 Indirect Bilirubin 0.1 Aspartate Amino Transf (AST/SGOT) 59 H Alanine Aminotransferase (ALT/SGPT) 62 Alkaline Phosphatase 115 Total Protein 6.0 L Albumin 2.8 L Globulin 3.20 Albumin/Globulin Ratio 0.87 Vancomycin Level Trough 7.6 L Subjective 24 Hr Interval Summary Subjective hx not possible: pt non-verbal Exam/Review of Systems Exam Vitals Vital Signs Date Temp Pulse Resp B/P (MAP) Pulse Ox O2 O2 Flow FiO2 Time Delivery Rate 07/15/18 98.1 68 18 178/74 99 Room Air 07:15 (108) Nasal Cannula 07/12/18 3.0 03:00 Intake and Output 07/14/18 07/14/18 07/15/18 1515:00 23:00 07:00 IntakeIntake Total 350 ml 1290 ml 920 ml BalanceBalance 350 ml 1290 ml 920 ml Exam Nonresponsive due to severe dementia Neck: supple, non-tender Respiratory: clear to auscultation, normal air movement Cardiovascular: nl pulses, irregular rhythm Gastrointestinal: soft, nl liver, spleen, non-tender Extremities: other (Gangrene left foot) Results Results 24hrs Laboratory Tests Test 07/15/18 07:52 White Blood Count 13.4 H Red Blood Count 3.62 L Hemoglobin 10.1 L Hematocrit 33.4 L Mean Corpuscular Volume 92.3 Mean Corpuscular Hemoglobin 27.9 L Mean Corpuscular Hemoglobin Concent 30.2 L Red Cell Distribution Width 13.3 Platelet Count 326 Mean Platelet Volume 10.1 Immature Granulocytes % 0.900 H Neutrophils % 82.4 H Lymphocytes % 10.7 L Monocytes % 5.5 Eosinophils % 0.1 Basophils % 0.4 Nucleated Red Blood Cells % 0.0 Immature Granulocytes # 0.120 H Neutrophils # 11.0 H Lymphocytes # 1.4 Monocytes # 0.7 Eosinophils # 0.0 Basophils # 0.1 Nucleated Red Blood Cells # 0.0 Sodium Level 139 Potassium Level 4.2 Chloride Level 105 Carbon Dioxide Level 24 Anion Gap 10 # Blood Urea Nitrogen 15 Creatinine 0.39 L Est Glomerular Filtrat Rate mL/min Glucose Level 181 Calcium Level 8.4 Total Bilirubin 0.1 L Direct Bilirubin 0.00 Indirect Bilirubin 0.1 Aspartate Amino Transf (AST/SGOT) 59 H Alanine Aminotransferase (ALT/SGPT) 62 Alkaline Phosphatase 115 Total Protein 6.0 L Albumin 2.8 L Globulin 3.20 Albumin/Globulin Ratio 0.87 Vancomycin Level Trough 7.6 L Medications Medication Current Medications Sodium Chloride 1,000 ml @ 80 mls/hr [id number] IV Last administered on 07/15/18at 01:19; Admin Dose 80 MLS/HR; Start 07/12/18 at 05:15 IV Flush (NS 3 ml) 3 ml PER PROTOCOL IV ; Start 07/12/18 at 05:30 Ondansetron HCl (Zofran Inj) 4 mg Q6H PRN IV NAUSEA/VOMITING; Start 07/12/18 at 05:30 Acetaminophen (Tylenol Supp) 650 mg Q6H PRN [place] .PAIN 1-3 OR TEMP; Start 07/12/18 at 05:30 Morphine Sulfate (morphine) 1 mg Q4H PRN IV .SEVERE PAIN 7-10 Last administered on 07/13/18 01:24; Admin Dose 1 MG; Start 07/12/18 at 05:30 Vancomycin HCl (Vanco Iv Per Pharmacy) VANCOMYCIN PER PHARMACY PER PROTOCOL XX ; Start 07/12/18 at 05:30 Miscellaneous Information (Pending Santyl Order For Wound Care) This patient crandall... PRN PRN XX WOUND CARE; Start 07/12/18 at 07:30 Collagenase (Santyl) 1 applic DAILY TOP Last administered on 07/15/18 09:41; Admin Dose 1 APPLIC; Start 07/12/18 at 09:00 Collagenase (Santyl) 1 applic PRN PRN TOP WHEN SOILED; Start 07/12/18 at 07:30 Mupirocin (Bactroban) 1 applic BID TOP Last administered on 07/15/18 09:41; Admin Dose 1 APPLIC; Start 07/12/18 at 13:30 Vancomycin HCl 250 ml @ 125 mls/hr Q24H IVPB Last administered on 07/15/18 0 9:38; Admin Dose 125 MLS/HR; Start 07/13/18 at 08:00 Captopril (Capoten) 25 mg BID GTB Last administered on 07/15/18 09:39; Admin Dose 25 MG; Start 07/12/18 at 21:00 Ranitidine HCl (Zantac) 150 mg BID GTB Last administered on 07/15/18 09:41; Admin Dose 150 MG; Start 07/12/18 at 21:00 Senna (Senokot) 2 tab QHS GTB Last administered on 07/14/18 21:27; Admin Dose 2 TAB; Start 07/12/18 at 21:00 Tramadol HCl (Ultram) 50 mg Q12 PRN GTB PAIN Last administered on 07/14/18 06:17; Admin Dose 50 MG; Start 07/12/18 at 20:30 Amlodipine Besylate (Norvasc) 5 mg DAILY PO Last administered on 07/15/18 09:41; Admin Dose 5 MG; Start 07/12/18 at 22:00 Aspirin (Aspirin) 81 mg DAILY PO Last administered on 07/15/18 09:39; Admin Dose 81 MG; Start 07/13/18 at 12:30 Alendronate Sodium (Fosamax) 70 mg We@0655 PO ; Start 07/19/18 at 06:55 Gabapentin (Neurontin) 300 mg Q8 GTB Last administered on 07/15/18 05:53; Admin Dose 300 MG; Start 07/13/18 at 14:00 Metoprolol Tartrate (Lopressor) 50 mg BID GTB Last administered on 07/15/18 09:39; Admin Dose 50 MG; Start 07/13/18 at 21:00 Multivitamins/ Minerals (Theragran-M) 1 tab DAILY PO Last administered on 07/15/18 09:39; Admin Dose 1 TAB; Start 07/14/18 at 09:00 Enoxaparin Sodium (Lovenox) 30 mg DAILY SC Last administered on 07/15/18 09:40; Admin Dose 30 MG; Start 07/14/18 at 09:00 Famotidine (Pepcid) 20 mg HS GTB Last administered on 07/14/18 21:28; Admin Dose 20 MG; Start 07/13/18 at 21:00 Ascorbic Acid (Vitamin C) 500 mg DAILY GTB Last administered on 07/15/18 09:41; Admin Dose 500 MG; Start 07/14/18 at 09:00 Zinc Sulfate (Zinc Sulfate) 220 mg DAILY GTB Last administered on 07/15/18 09:39; Admin Dose 220 MG; Start 07/14/18 at 09:00 Docusate Sodium (Colace Liquid Cup) 100 mg BID GTB Last administered on 07/15/18 09:39; Admin Dose 100 MG; Start 07/14/18 at 09:00 Cefepime HCl 50 ml @ 100 mls/hr Q12 IVPB Last administered on 07/14/18 21:27; Admin Dose 100 MLS/HR; Start 07/14/18 at 21:00 IV Flush (NS 10 ml) 10 ml PRN PRN IV IV PROTOCOL; Start 07/14/18 at 15:30 Hydralazine HCl (Apresoline) 10 mg Q4H PRN IV ELEVATED BLOOD PRESSURE Last administered on 07/15/18 05:41; Admin Dose 10 MG; Start 07/15/18 at 06:00 CHIRAG COLLINS MD Jul 15, 2018 09:57
[2018-07-15] MEDS: LISINOPRIL 20 MG TAB GTB SCH ×2 (11:15→20:43)
[2018-07-15] MEDS: CEFEPIME 1GM/50 ML (PMX) 50 ML IVPB SCH ×2 (12:11→20:38)
--- NOTE | 2018-07-15 12:48 | CONS ---
Assessment/Plan Assessment/Plan Hospital Course (Demo Recall) All noted Microbiology: Blood culture growing staph suspicious left foot wound culture growing Proteus and enterococcus species Antimicrobials: Vancomycin Cefepime Physical examination: Well-developed fragile elderly woman in no distress. Head atraumatic normocephalic sclera nonicteric vehicle mucosa dry neck is supple chest rise symmetrical breath sounds diminished bases. Heart S1-S2. Abdomen soft bowel sounds present. Extremities with bilateral lower extremities dressing intact Assessment: 1. Systemic inflammatory response syndrome 2. Left foot gangrene 3. Severe peripheral arterial disease 4. Diabetes 5. History of CVA 6. Bacteremia, poss contaminant Plan: Pending repeat bld cx's, continue abx, anticipate dc on IV Ampicillin for 6 weeks if repeat bld cx negative, follow podiatry and vascular recommendations==>patient is a not candidate for revascularization, needs BKA/AKA Consultation Date/Type/Reason Admit Date/Time Jul 12, 2018 at 04:13 Initial Consult Date Type of Consult id Date/Time of Note DATE: 07/15/18 TIME: 12:45 Exam/Review of Systems Exam Vitals Vital Signs Date Temp Pulse Resp B/P (MAP) Pulse Ox O2 O2 Flow FiO2 Time Delivery Rate 07/15/18 98.1 68 18 178/74 99 Room Air 07:15 (108) Nasal Cannula 07/12/18 3.0 03:00 Intake and Output 07/14/18 07/14/18 07/15/18 1515:00 23:00 07:00 IntakeIntake Total 350 ml 1290 ml 920 ml BalanceBalance 350 ml 1290 ml 920 ml Results Result Diagram: 07/15/18 0752 07/15/18 0752 Results 24hrs Laboratory Tests Test 07/15/18 07:52 White Blood Count 13.4 H Red Blood Count 3.62 L Hemoglobin 10.1 L Hematocrit 33.4 L Mean Corpuscular Volume 92.3 Mean Corpuscular Hemoglobin 27.9 L Mean Corpuscular Hemoglobin Concent 30.2 L Red Cell Distribution Width 13.3 Platelet Count 326 Mean Platelet Volume 10.1 Immature Granulocytes % 0.900 H Neutrophils % 82.4 H Lymphocytes % 10.7 L Monocytes % 5.5 Eosinophils % 0.1 Basophils % 0.4 Nucleated Red Blood Cells % 0.0 Immature Granulocytes # 0.120 H Neutrophils # 11.0 H Lymphocytes # 1.4 Monocytes # 0.7 Eosinophils # 0.0 Basophils # 0.1 Nucleated Red Blood Cells # 0.0 Sodium Level 139 Potassium Level 4.2 Chloride Level 105 Carbon Dioxide Level 24 Anion Gap 10 # Blood Urea Nitrogen 15 Creatinine 0.39 L Est Glomerular Filtrat Rate mL/min Glucose Level 181 Calcium Level 8.4 Total Bilirubin 0.1 L Direct Bilirubin 0.00 Indirect Bilirubin 0.1 Aspartate Amino Transf (AST/SGOT) 59 H Alanine Aminotransferase (ALT/SGPT) 62 Alkaline Phosphatase 115 Total Protein 6.0 L Albumin 2.8 L Globulin 3.20 Albumin/Globulin Ratio 0.87 Vancomycin Level Trough 7.6 L Medications Medication Current Medications Sodium Chloride 1,000 ml @ 80 mls/hr [id number] IV Last administered on 07/15/18 01:19; Admin Dose 80 MLS/HR; Start 07/12/18 at 05:15 IV Flush (NS 3 ml) 3 ml PER PROTOCOL IV ; Start 07/12/18 at 05:30 Ondansetron HCl (Zofran Inj) 4 mg Q6H PRN IV NAUSEA/VOMITING; Start 07/12/18 at 05:30 Acetaminophen (Tylenol Supp) 650 mg Q6H PRN [place] .PAIN 1-3 OR TEMP; Start 07/12/18 at 05:30 Morphine Sulfate (morphine) 1 mg Q4H PRN IV .SEVERE PAIN 7-10 Last administered on 07/13/18at 01:24; Admin Dose 1 MG; Start 07/12/18 at 05:30 Vancomycin HCl (Vanco Iv Per Pharmacy) VANCOMYCIN PER PHARMACY PER PROTOCOL XX ; Start 07/12/18 at 05:30 Miscellaneous Information (Pending Santyl Order For Wound Care) This patient crandall... PRN PRN XX WOUND CARE; Start 07/12/18 at 07:30 Collagenase (Santyl) 1 applic DAILY TOP Last administered on 07/15/18at 09:41; Admin Dose 1 APPLIC; Start 07/12/18 at 09:00 Collagenase (Santyl) 1 applic PRN PRN TOP WHEN SOILED; Start 07/12/18 at 07:30 Mupirocin (Bactroban) 1 applic BID TOP Last administered on 07/15/18at 09:41; Admin Dose 1 APPLIC; Start 07/12/18 at 13:30 Vancomycin HCl 250 ml @ 125 mls/hr Q24H IVPB Last administered on 07/15/18 09:38; Admin Dose 125 MLS/HR; Start 07/13/18 at 08:00 Ranitidine HCl (Zantac) 150 mg BID GTB Last administered on 07/15/18 09:41; Admin Dose 150 MG; Start 07/12/18 at 21:00 Senna (Senokot) 2 tab QHS GTB Last administered on 07/14/18 21:27; Admin Dose 2 TAB; Start 07/12/18 at 21:00 Tramadol HCl (Ultram) 50 mg Q12 PRN GTB PAIN Last administered on 07/14/18 06:17; Admin Dose 50 MG; Start 07/12/18 at 20:30 Amlodipine Besylate (Norvasc) 5 mg DAILY PO Last administered on 07/15/18 09:41; Admin Dose 5 MG; Start 07/12/18 at 22:00 Aspirin (Aspirin) 81 mg DAILY PO Last administered on 07/15/18 09:39; Admin Dose 81 MG; Start 07/13/18 at 12:30 Gabapentin (Neurontin) 300 mg Q8 GTB Last administered on 07/15/18 05:53; Admin Dose 300 MG; Start 07/13/18 at 14:00 Metoprolol Tartrate (Lopressor) 50 mg BID GTB Last administered on 07/15/18 09:39; Admin Dose 50 MG; Start 07/13/18 at 21:00 Multivitamins/ Minerals (Theragran-M) 1 tab DAILY PO Last administered on 07/15/18 09:39; Admin Dose 1 TAB; Start 07/14/18 at 09:00 Enoxaparin Sodium (Lovenox) 30 mg DAILY SC Last administered on 07/15/18 09:40; Admin Dose 30 MG; Start 07/14/18 at 09:00 Famotidine (Pepcid) 20 mg HS GTB Last administered on 07/14/18 21:28; Admin Dose 20 MG; Start 07/13/18 at 21:00 Ascorbic Acid (Vitamin C) 500 mg DAILY GTB Last administered on 07/15/18 09:41; Admin Dose 500 MG; Start 07/14/18 at 09:00 Zinc Sulfate (Zinc Sulfate) 220 mg DAILY GTB Last administered on 07/15/18 09:39; Admin Dose 220 MG; Start 07/14/18 at 09:00 Docusate Sodium (Colace Liquid Cup) 100 mg BID GTB Last administered on 07/15/18 09:39; Admin Dose 100 MG; Start 07/14/18 at 09:00 Cefepime HCl 50 ml @ 100 mls/hr Q12 IVPB Last administered on 07/15/18 12:11; Admin Dose 100 MLS/HR; Start 07/14/18 at 21:00 IV Flush (NS 10 ml) 10 ml PRN PRN IV IV PROTOCOL; Start 07/14/18 at 15:30 Hydralazine HCl (Apresoline) 10 mg Q4H PRN IV ELEVATED BLOOD PRESSURE Last administered on 07/15/18 05:41; Admin Dose 10 MG; Start 07/15/18 at 06:00 Lisinopril (Zestril) 20 mg BID GTB Last administered on 07/15/18at 11:15; Admin Dose 20 MG; Start 07/15/18 at 10:00 FRANCO MARTINEZ NP Jul 15, 2018 12:48
[2018-07-15 15:22] VITALS: BP 138/91; PULSE 62; RESP 17
[2018-07-15 20:00] VITALS: BP 147/64; PULSE 64; RESP 18
[2018-07-15] MEDS: SENNA TAB GTB SCH (20:38)
[2018-07-15] MEDS: FAMOTIDINE 20 MG TAB GTB SCH (20:38)
[2018-07-16 02:00] VITALS: BP 145/61; PULSE 62; RESP 18
[2018-07-16] MEDS: morphine 2 MG INJ IV PRN (04:58)
[2018-07-16] MEDS: GABAPENTIN 300 MG CAP GTB SCH ×3 (05:11→21:39)
[2018-07-16 08:48] VITALS: BP 142/89; RESP 18
[2018-07-16] MEDS ORDERED: VANCOMYCIN HCL 1.25 GM in SOD CHLORIDE 0.9% 250 ML IVPB SCH (09:00)
[2018-07-16] MEDS: CEFEPIME 1GM/50 ML (PMX) 50 ML IVPB SCH (09:18)
[2018-07-16] MEDS: ASPIRIN 81 MG TAB PO SCH (09:18)
[2018-07-16] MEDS: MULTIVITAMINS/MINERALS TAB PO SCH (09:18)
[2018-07-16] MEDS: ZINC SULFATE 220 MG CAP GTB SCH (09:18)
[2018-07-16] MEDS: RANITIDINE 150 MG TAB GTB SCH ×2 (09:19→21:42)
[2018-07-16] MEDS: METOPROLOL 50 MG TAB GTB SCH ×2 (09:19→21:35)
[2018-07-16] MEDS: AMLODIPINE 5 MG TAB PO SCH (09:19)
[2018-07-16] MEDS: ASCORBIC ACID 500 MG TAB GTB SCH (09:19)
[2018-07-16] MEDS: LISINOPRIL 20 MG TAB GTB SCH ×2 (09:20→21:36)
[2018-07-16] MEDS: DOCUSATE SODIUM 10 MG/ML (10ML CUP) GTB SCH ×2 (09:20→21:36)
[2018-07-16] MEDS: COLLAGENASE 5 GM (UD JAR) TOP SCH (09:20)
[2018-07-16] MEDS: MUPIROCIN 2% 22 GM OINT TOP SCH ×2 (09:21→21:37)
[2018-07-16] MEDS: ENOXAPARIN 30 MG/0.3 ML SYG SC SCH (09:22)
[2018-07-16] MEDS: SOD CHLORIDE 0.9% 1,000 ML IV SCH ×2 (09:40→21:39)
--- NOTE | 2018-07-16 12:02 | PN ---
Date/Time of Note Date/Time of Note DATE: 07/16/18 TIME: 11:59 Assessment/Plan VTE Prophylaxis Risk score (from Ns)>0 risk: 6 SCD applied (from Ns): Yes Pharmacological prophylaxis: heparin Lines/Catheters IV [facility] Type [facility]from [facility]): PICC Line Central line still needed: Yes Urinary Cath still in place: No Assessment/Plan Problems: (1) Gangrene of toe of left foot Status: Acute Comment: We have not yet received a decision from the family about how to proceed. Clearly she is not a revascularization candidate and would be best served with an above-knee amputation. However at age 87 with dementia etc. the utility of pursuing that may be viewed as futile care (2) Atrial fibrillation Status: Chronic Comment: Noted and stable Qualifiers: Atrial fibrillation type: chronic Qualified Codes: I48.2 - Chronic atrial fibrillation (3) Peripheral vascular disease due to secondary diabetes mellitus Status: Chronic Comment: Stable but not bypassable (4) Anemia of chronic disease Status: Chronic Comment: Noted. (5) Dementia Status: Chronic Comment: Noted. Qualifiers: Dementia type: unspecified type Dementia behavioral disturbance: without behavioral disturbance Qualified Codes: F03.90 - Unspecified dementia without behavioral disturbance (6) Essential hypertension Status: Chronic Comment: Controlled. 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 Status: Chronic Comment: Stable at this time Result Diagram: 07/16/18 0422 07/16/18 0422 Results 24hrs Laboratory Tests Test 07/16/18 04:22 White Blood Count 10.7 # Red Blood Count 3.59 L Hemoglobin 9.9 L Hematocrit 32.7 L Mean Corpuscular Volume 91.1 Mean Corpuscular Hemoglobin 27.6 L Mean Corpuscular Hemoglobin Concent 30.3 L Red Cell Distribution Width 13.5 Platelet Count 292 Mean Platelet Volume 10.0 Immature Granulocytes % 0.700 H Neutrophils % 81.0 H Lymphocytes % 12.0 L Monocytes % 5.3 Eosinophils % 0.7 Basophils % 0.3 Nucleated Red Blood Cells % 0.0 Immature Granulocytes # 0.070 H Neutrophils # 8.6 H Lymphocytes # 1.3 Monocytes # 0.6 Eosinophils # 0.1 Basophils # 0.0 Nucleated Red Blood Cells # 0.0 Sodium Level 138 Potassium Level 3.8 Chloride Level 105 Carbon Dioxide Level 27 Anion Gap 6 Blood Urea Nitrogen 16 Creatinine 0.41 L Est Glomerular Filtrat Rate mL/min Glucose Level 195 Calcium Level 8.4 Total Bilirubin 0.1 L Direct Bilirubin 0.00 Indirect Bilirubin 0.1 Aspartate Amino Transf (AST/SGOT) 52 H Alanine Aminotransferase (ALT/SGPT) 58 Alkaline Phosphatase 107 Total Protein 6.2 Albumin 2.9 L Globulin 3.30 H Albumin/Globulin Ratio 0.87 Subjective 24 Hr Interval Summary Free Text/Dictation Patient awakens but is not verbal Subjective hx not possible: pt non-verbal Exam/Review of Systems Exam Vitals Vital Signs Date Temp Pulse Resp B/P (MAP) Pulse Ox O2 O2 Flow FiO2 Time Delivery Rate 07/16/18 100.5 18 142/89 93 Nasal 2.0 08:48 (106) Cannula 07/16/18 62 02:00 Intake and Output 07/15/18 07/15/18 07/16/18 1515:00 23:00 07:00 IntakeIntake Total 300 ml 780 ml 680 ml BalanceBalance 300 ml 780 ml 680 ml Constitutional: non-verbal Respiratory: clear to auscultation, normal air movement Cardiovascular: regular rate and rhythm, nl pulses Gastrointestinal: soft, nl liver, spleen, non-tender Extremities: other (Heel protectors on both feet, left foot bandaged) Results Results 24hrs Laboratory Tests Test 07/16/18 04:22 White Blood Count 10.7 # Red Blood Count 3.59 L Hemoglobin 9.9 L Hematocrit 32.7 L Mean Corpuscular Volume 91.1 Mean Corpuscular Hemoglobin 27.6 L Mean Corpuscular Hemoglobin Concent 30.3 L Red Cell Distribution Width 13.5 Platelet Count 292 Mean Platelet Volume 10.0 Immature Granulocytes % 0.700 H Neutrophils % 81.0 H Lymphocytes % 12.0 L Monocytes % 5.3 Eosinophils % 0.7 Basophils % 0.3 Nucleated Red Blood Cells % 0.0 Immature Granulocytes # 0.070 H Neutrophils # 8.6 H Lymphocytes # 1.3 Monocytes # 0.6 Eosinophils # 0.1 Basophils # 0.0 Nucleated Red Blood Cells # 0.0 Sodium Level 138 Potassium Level 3.8 Chloride Level 105 Carbon Dioxide Level 27 Anion Gap 6 Blood Urea Nitrogen 16 Creatinine 0.41 L Est Glomerular Filtrat Rate mL/min Glucose Level 195 Calcium Level 8.4 Total Bilirubin 0.1 L Direct Bilirubin 0.00 Indirect Bilirubin 0.1 Aspartate Amino Transf (AST/SGOT) 52 H Alanine Aminotransferase (ALT/SGPT) 58 Alkaline Phosphatase 107 Total Protein 6.2 Albumin 2.9 L Globulin 3.30 H Albumin/Globulin Ratio 0.87 Medications Medication Current Medications Sodium Chloride 1,000 ml @ 80 mls/hr [id number] IV Last administered on 07/16/18 09:40; Admin Dose 80 MLS/HR; Start 07/12/18 at 05:15 IV Flush (NS 3 ml) 3 ml PER PROTOCOL IV ; Start 07/12/18 at 05:30 Ondansetron HCl (Zofran Inj) 4 mg Q6H PRN IV NAUSEA/VOMITING; Start 07/12/18 at 05:30 Acetaminophen (Tylenol Supp) 650 mg Q6H PRN SC .PAIN 1-3 OR TEMP; Start 07/12/18 at 05:30 Morphine Sulfate (morphine) 1 mg Q4H PRN IV .SEVERE PAIN 7-10 Last administered on 07/16/18at 04:58; Admin Dose 1 MG; Start 07/12/18 at 05:30 Vancomycin HCl (Vanco Iv Per Pharmacy) VANCOMYCIN PER PHARMACY PER PROTOCOL XX ; Start 07/12/18 at 05:30 Miscellaneous Information (Pending Santyl Order For Wound Care) This patient crandall... PRN PRN XX WOUND CARE; Start 07/12/18 at 07:30 Collagenase (Santyl) 1 applic DAILY TOP Last administered on 07/16/18at 09:20; Admin Dose 1 APPLIC; Start 07/12/18 at 09:00 Collagenase (Santyl) 1 applic PRN PRN TOP WHEN SOILED; Start 07/12/18 at 07:30 Mupirocin (Bactroban) 1 applic BID TOP Last administered on 07/16/18 09:21; Admin Dose 1 APPLIC; Start 07/12/18 at 13:30 Ranitidine HCl (Zantac) 150 mg BID GTB Last administered on 07/16/18 09:19; Admin Dose 150 MG; Start 07/12/18 at 21:00 Senna (Senokot) 2 tab QHS GTB Last administered on 07/15/18at 20:38; Admin Dose 2 TAB; Start 07/12/18 at 21:00 Tramadol HCl (Ultram) 50 mg Q12 PRN GTB PAIN Last administered on 07/14/18 06:17; Admin Dose 50 MG; Start 07/12/18 at 20:30 Amlodipine Besylate (Norvasc) 5 mg DAILY PO Last administered on 07/16/18 09:19; Admin Dose 5 MG; Start 07/12/18 at 22:00 Aspirin (Aspirin) 81 mg DAILY PO Last administered on 07/16/18 09:18; Admin D ose 81 MG; Start 07/13/18 at 12:30 Gabapentin (Neurontin) 300 mg Q8 GTB Last administered on 07/16/18 05:11; Admin Dose 300 MG; Start 07/13/18 at 14:00 Metoprolol Tartrate (Lopressor) 50 mg BID GTB Last administered on 07/16/18 09:19; Admin Dose 50 MG; Start 07/13/18 at 21:00 Multivitamins/ Minerals (Theragran-M) 1 tab DAILY PO Last administered on 07/16/18 09:18; Admin Dose 1 TAB; Start 07/14/18 at 09:00 Enoxaparin Sodium (Lovenox) 30 mg DAILY SC Last administered on 07/16/18 09:22; Admin Dose 30 MG; Start 07/14/18 at 09:00 Famotidine (Pepcid) 20 mg HS GTB Last administered on 07/15/18 20:38; Admin Dose 20 MG; Start 07/13/18 at 21:00 Ascorbic Acid (Vitamin C) 500 mg DAILY GTB Last administered on 07/16/18 09:19; Admin Dose 500 MG; Start 07/14/18 at 09:00 Zinc Sulfate (Zinc Sulfate) 220 mg DAILY GTB Last administered on 07/16/18 09:18; Admin Dose 220 MG; Start 07/14/18 at 09:00 Docusate Sodium (Colace Liquid Cup) 100 mg BID GTB Last administered on 07/16/18 09:20; Admin Dose 100 MG; Start 07/14/18 at 09:00 Cefepime HCl 50 ml @ 100 mls/hr Q12 IVPB Last administered on 07/16/18 09:18; Admin Dose 100 MLS/HR; Start 07/14/18 at 21:00 IV Flush (NS 10 ml) 10 ml PRN PRN IV IV PROTOCOL; Start 07/14/18 at 15:30 Hydralazine HCl (Apresoline) 10 mg Q4H PRN IV ELEVATED BLOOD PRESSURE Last adm inistered on 07/15/18at 05:41; Admin Dose 10 MG; Start 07/15/18 at 06:00 Lisinopril (Zestril) 20 mg BID GTB Last administered on 07/16/18at 09:20; Admin Dose 20 MG; Start 07/15/18 at 10:00 Vancomycin HCl 1.25 gm/Sodium Chloride 250 ml @ 83.333 mls/ hr Q24H IVPB Last administered on 07/16/18at 10:50; Admin Dose 83.333 MLS/HR; Start 07/16/18 at 09:00 CHIRAG COLLINS MD Jul 16, 2018 12:02
--- NOTE | 2018-07-16 13:19 | CONS ---
Assessment/Plan Assessment/Plan Hospital Course (Demo Recall) No acute events looks comfortable, no fevers Microbiology: Blood culture growing staph suspicious left foot wound culture growing Proteus and enterococcus species Antimicrobials: Vancomycin Cefepime Physical examination: Well-developed fragile elderly woman in no distress. Head atraumatic normocephalic sclera nonicteric vehicle mucosa dry neck is supple chest rise symmetrical breath sounds diminished bases. Heart S1-S2. Abdomen soft bowel sounds present. Extremities with bilateral lower extremities dressing intact Assessment: 1. Systemic inflammatory response syndrome 2. Left foot gangrene 3. Severe peripheral arterial disease 4. Diabetes 5. History of CVA 6. Bacteremia, poss contaminant Plan: Change abx to IV Ampicillin to continue for 6 weeks, podiatry and vascular recommendations noted==>patient is a not candidate for revascularization, needs BKA/AKA Consultation Date/Type/Reason Admit Date/Time Jul 12, 2018 at 04:13 Initial Consult Date Type of Consult id Date/Time of Note DATE: 07/16/18 TIME: 13:18 Exam/Review of Systems Exam Vitals Vital Signs Date Temp Pulse Resp B/P (MAP) Pulse Ox O2 O2 Flow FiO2 Time Delivery Rate 07/16/18 100.5 18 142/89 93 Nasal 2.0 08:48 (106) Cannula 07/16/18 62 02:00 Intake and Output 07/15/18 07/15/18 07/16/18 1515:00 23:00 07:00 IntakeIntake Total 300 ml 780 ml 680 ml BalanceBalance 300 ml 780 ml 680 ml Results Result Diagram: 07/16/18 0422 07/16/18 0422 Results 24hrs Laboratory Tests Test 07/16/18 04:22 White Blood Count 10.7 # Red Blood Count 3.59 L Hemoglobin 9.9 L Hematocrit 32.7 L Mean Corpuscular Volume 91.1 Mean Corpuscular Hemoglobin 27.6 L Mean Corpuscular Hemoglobin Concent 30.3 L Red Cell Distribution Width 13.5 Platelet Count 292 Mean Platelet Volume 10.0 Immature Granulocytes % 0.700 H Neutrophils % 81.0 H Lymphocytes % 12.0 L Monocytes % 5.3 Eosinophils % 0.7 Basophils % 0.3 Nucleated Red Blood Cells % 0.0 Immature Granulocytes # 0.070 H Neutrophils # 8.6 H Lymphocytes # 1.3 Monocytes # 0.6 Eosinophils # 0.1 Basophils # 0.0 Nucleated Red Blood Cells # 0.0 Sodium Level 138 Potassium Level 3.8 Chloride Level 105 Carbon Dioxide Level 27 Anion Gap 6 Blood Urea Nitrogen 16 Creatinine 0.41 L Est Glomerular Filtrat Rate mL/min Glucose Level 195 Calcium Level 8.4 Total Bilirubin 0.1 L Direct Bilirubin 0.00 Indirect Bilirubin 0.1 Aspartate Amino Transf (AST/SGOT) 52 H Alanine Aminotransferase (ALT/SGPT) 58 Alkaline Phosphatase 107 Total Protein 6.2 Albumin 2.9 L Globulin 3.30 H Albumin/Globulin Ratio 0.87 Medications Medication Current Medications Sodium Chloride 1,000 ml @ 80 mls/hr [id number] IV Last administered on 07/16/18 09:40; Admin Dose 80 MLS/HR; Start 07/12/18 at 05:15 IV Flush (NS 3 ml) 3 ml PER PROTOCOL IV ; Start 07/12/18 at 05:30 Ondansetron HCl (Zofran Inj) 4 mg Q6H PRN IV NAUSEA/VOMITING; Start 07/12/18 at 05:30 Acetaminophen (Tylenol Supp) 650 mg Q6H PRN [place] .PAIN 1-3 OR TEMP; Start 07/12/18 at 05:30 Morphine Sulfate (morphine) 1 mg Q4H PRN IV .SEVERE PAIN 7-10 Last administered on 07/16/18at 04:58; Admin Dose 1 MG; Start 07/12/18 at 05:30 Vancomycin HCl (Vanco Iv Per Pharmacy) VANCOMYCIN PER PHARMACY PER PROTOCOL XX ; Start 07/12/18 at 05:30 Miscellaneous Information (Pending Santyl Order For Wound Care) This patient crandall... PRN PRN XX WOUND CARE; Start 07/12/18 at 07:30 Collagenase (Santyl) 1 applic DAILY TOP Last administered on 07/16/18at 09:20; Admin Dose 1 APPLIC; Start 07/12/18 at 09:00 Collagenase (Santyl) 1 applic PRN PRN TOP WHEN SOILED; Start 07/12/18 at 07:30 Mupirocin (Bactroban) 1 applic BID TOP Last administered on 07/16/18 09:21; Admin Dose 1 APPLIC; Start 07/12/18 at 13:30 Ranitidine HCl (Zantac) 150 mg BID GTB Last administered on 4/7/19at 09:19; Admin Dose 150 MG; Start 07/12/18 at 21:00 Senna (Senokot) 2 tab QHS GTB Last administered on 07/15/18 20:38; Admin Dose 2 TAB; Start 07/12/18 at 21:00 Tramadol HCl (Ultram) 50 mg Q12 PRN GTB PAIN Last administered on 07/14/18 06:17; Admin Dose 50 MG; Start 07/12/18 at 20:30 Amlodipine Besylate (Norvasc) 5 mg DAILY PO Last administered on 07/16/18 09:19; Admin Dose 5 MG; Start 07/12/18 at 22:00 Aspirin (Aspirin) 81 mg DAILY PO Last administered on 07/16/18 09:18; Admin Dose 81 MG; Start 07/13/18 at 12:30 Gabapentin (Neurontin) 300 mg Q8 GTB Last administered on 07/16/18 05:11; Admin Dose 300 MG; Start 07/13/18 at 14:00 Metoprolol Tartrate (Lopressor) 50 mg BID GTB Last administered on 07/16/18 09:19; Admin Dose 50 MG; Start 07/13/18 at 21:00 Multivitamins/ Minerals (Theragran-M) 1 tab DAILY PO Last administered on 07/16/18 09:18; Admin Dose 1 TAB; Start 07/14/18 at 09:00 Enoxaparin Sodium (Lovenox) 30 mg DAILY SC Last administered on 07/16/18 09:22; Admin Dose 30 MG; Start 07/14/18 at 09:00 Famotidine (Pepcid) 20 mg HS GTB Last administered on 07/15/18 20:38; Admin Dose 20 MG; Start 07/13/18 at 21:00 Ascorbic Acid (Vitamin C) 500 mg DAILY GTB Last administered on 07/16/18 09:19; Admin Dose 500 MG; Start 07/14/18 at 09:00 Zinc Sulfate (Zinc Sulfate) 220 mg DAILY GTB Last administered on 07/16/18 09:18; Admin Dose 220 MG; Start 07/14/18 at 09:00 Docusate Sodium (Colace Liquid Cup) 100 mg BID GTB Last administered on 07/16/18 09:20; Admin Dose 100 MG; Start 07/14/18 at 09:00 Cefepime HCl 50 ml @ 100 mls/hr Q12 IVPB Last administered on 07/16/18at 09:18; Admin Dose 100 MLS/HR; Start 07/14/18 at 21:00 IV Flush (NS 10 ml) 10 ml PRN PRN IV IV PROTOCOL; Start 07/14/18 at 15:30 Hydralazine HCl (Apresoline) 10 mg Q4H PRN IV ELEVATED BLOOD PRESSURE Last administered on 07/15/18at 05:41; Admin Dose 10 MG; Start 07/15/18 at 06:00 Lisinopril (Zestril) 20 mg BID GTB Last administered on 07/16/18at 09:20; Admin Dose 20 MG; Start 07/15/18 at 10:00 Vancomycin HCl 1.25 gm/Sodium Chloride 250 ml @ 83.333 mls/ hr Q24H IVPB Last administered on 07/16/18at 10:50; Admin Dose 83.333 MLS/HR; Start 07/16/18 at 09:00 FRANCO MARTINEZ NP Jul 16, 2018 13:19
[2018-07-16 14:00] VITALS: BP 155/90; PULSE 83; RESP 18
[2018-07-16] MEDS ORDERED: LEVALBUTEROL (NEB) 1.25 MG/0.5 ML AMP HHN PRN (14:00)
[2018-07-16] MEDS: AMPICILLIN 1 GM/NS (PMX) 50 ML IVPB SCH (17:50)
[2018-07-16 21:30] VITALS: BP 137/59; PULSE 74; RESP 18
[2018-07-16] MEDS: FAMOTIDINE 20 MG TAB GTB SCH (21:36)
[2018-07-16] MEDS: SENNA TAB GTB SCH (21:36)
[2018-07-17] MEDS: AMPICILLIN 1 GM/NS (PMX) 50 ML IVPB SCH ×4 (00:46→18:10)
[2018-07-17] MEDS: morphine 2 MG INJ IV PRN ×2 (01:55→15:08)
[2018-07-17] MEDS: hydrALAzine 20 MG INJ IV PRN (02:18)
[2018-07-17] MEDS: SOD CHLORIDE 0.9% 1,000 ML IV SCH ×2 (06:16→22:45)
[2018-07-17] MEDS: GABAPENTIN 300 MG CAP GTB SCH ×3 (06:16→20:25)
[2018-07-17 08:46] VITALS: BP 133/59; PULSE 80; RESP 18
[2018-07-17] MEDS: MULTIVITAMINS/MINERALS TAB PO SCH (09:24)
[2018-07-17] MEDS: DOCUSATE SODIUM 10 MG/ML (10ML CUP) GTB SCH ×2 (09:24→20:24)
[2018-07-17] MEDS: RANITIDINE 150 MG TAB GTB SCH ×2 (09:25→20:24)
[2018-07-17] MEDS: ASPIRIN 81 MG TAB PO SCH (09:25)
[2018-07-17] MEDS: ASCORBIC ACID 500 MG TAB GTB SCH (09:25)
[2018-07-17] MEDS: ZINC SULFATE 220 MG CAP GTB SCH (09:26)
[2018-07-17] MEDS: METOPROLOL 50 MG TAB GTB SCH ×2 (09:28→20:25)
[2018-07-17] MEDS: AMLODIPINE 5 MG TAB PO SCH (09:28)
[2018-07-17] MEDS: LISINOPRIL 20 MG TAB GTB SCH ×2 (09:28→20:25)
[2018-07-17] MEDS: COLLAGENASE 5 GM (UD JAR) TOP SCH (09:30)
[2018-07-17] MEDS: ENOXAPARIN 30 MG/0.3 ML SYG SC SCH (09:31)
[2018-07-17] MEDS: MUPIROCIN 2% 22 GM OINT TOP SCH ×2 (09:32→20:26)
--- NOTE | 2018-07-17 13:17 | CONS ---
Assessment/Plan Assessment/Plan Hospital Course (Demo Recall) Tm 100.8, nad Microbiology: Blood culture growing staph suspicious left foot wound culture gr owing Proteus, Stenotrophomonas and enterococcus species Antimicrobials: Ampicillin Physical examination: Well-developed fragile elderly woman in no distress. Head atraumatic normocephalic sclera nonicteric vehicle mucosa dry neck is supple chest rise symmetrical breath sounds diminished bases. Heart S1-S2. Abdomen soft bowel sounds present. Extremities with bilateral lower extremities dress ing intact Assessment: 1. Systemic inflammatory response syndrome 2. Left foot gangrene 3. Severe peripheral arterial disease 4. Diabetes 5. History of CVA 6. Bacteremia, poss contaminant Plan: Repeat bld cx and urine cx, add Levaquin to cover Stenotrophomonas Consultation Date/Type/Reason Admit Date/Time Jul 12, 2018 at 04:13 Initial Consult Date Type of Consult id Date/Time of Note DATE: 07/17/18 TIME: 13:16 Exam/Review of Systems Exam Vitals Vital Signs Date Temp Pulse Resp B/P (MAP) Pulse Ox O2 O2 Flow FiO2 Time Delivery Rate 07/17/18 99.4 09:11 07/17/18 80 18 133/59 95 Nasal 08:46 (83) Cannula 07/17/18 2.0 08:25 Intake and Output 07/16/18 07/16/18 07/17/18 1515:00 23:00 07:00 IntakeIntake Total 350 ml 1260 ml BalanceBalance 350 ml 1260 ml Results Result Diagram: 07/16/18 0422 07/16/18 0422 Medications Medication Current Medications Sodium Chloride 1,000 ml @ 80 mls/hr [id number] IV Last administered on 07/17/18at 06:16; Admin Dose 80 MLS/HR; Start 07/12/18 at 05:15 IV Flush (NS 3 ml) 3 ml PER PROTOCOL IV ; Start 07/12/18 at 05:30 Ondansetron HCl (Zofran Inj) 4 mg Q6H PRN IV NAUSEA/VOMITING; Start 07/12/18 at 05:30 Acetaminophen (Tylenol Supp) 650 mg Q6H PRN [place] .PAIN 1-3 OR TEMP Last administe red on 07/17/18at 08:26; Admin Dose 650 MG; Start 07/12/18 at 05:30 Morphine Sulfate (morphine) 1 mg Q4H PRN IV .SEVERE PAIN 7-10 Last administered on 07/17/18 01:55; Admin Dose 1 MG; Start 07/12/18 at 05:30 Miscellaneous Information (Pending Santyl Order For Wound Care) This patient crandall... PRN PRN XX WOUND CARE; Start 07/12/18 at 07:30 Collagenase (Santyl) 1 applic DAILY TOP Last administered on 07/17/18 09:30; Admin Dose 1 APPLIC; Start 07/12/18 at 09:00 Collagenase (Santyl) 1 applic PRN PRN TOP WHEN SOILED; Start 07/12/18 at 07:30 Mupirocin (Bactroban) 1 applic BID TOP Last administered on 07/17/18 09:32; Admin Dose 1 APPLIC; Start 07/12/18 at 13:30 Ranitidine HCl (Zantac) 150 mg BID GTB Last administered on 07/17/18 09:25; Admin Dose 150 MG; Start 07/12/18 at 21:00 Senna (Senokot) 2 tab QHS GTB Last administered on 07/16/18 21:36; Admin Dose 2 TAB; Start 07/12/18 at 21:00 Tramadol HCl (Ultram) 50 mg Q12 PRN GTB PAIN Last administered on 07/14/18 06:17; Admin Dose 50 MG; Start 07/12/18 at 20:30 Amlodipine Besylate (Norvasc) 5 mg DAILY PO Last administered on 07/17/18 09:28; Admin Dose 5 MG; Start 07/12/18 at 22:00 Aspirin (Aspirin) 81 mg DAILY PO Last administered on 07/17/18 09:25; Admin Dose 81 MG; Start 07/13/18 at 12:30 Gabapentin (Neurontin) 300 mg Q8 GTB Last administered on 07/17/18 06:16; Admin Dose 300 MG; Start 07/13/18 at 14:00 Metoprolol Tartrate (Lopressor) 50 mg BID GTB Last administered on 07/17/18 09:28; Admin Dose 50 MG; Start 07/13/18 at 21:00 Multivitamins/ Minerals (Theragran-M) 1 tab DAILY PO Last administered on 07/17/18 09:24; Admin Dose 1 TAB; Start 07/14/18 at 09:00 Enoxaparin Sodium (Lovenox) 30 mg DAILY SC Last administered on 07/17/18 09:31; Admin Dose 30 MG; Start 07/14/18 at 09:00 Famotidine (Pepcid) 20 mg HS GTB Last administered on 07/16/18 21:36; Admin Dose 20 MG; Start 07/13/18 at 21:00 Ascorbic Acid (Vitamin C) 500 mg DAILY GTB Last administered on 07/17/18 09:25; Admin Dose 500 MG; Start 07/14/18 at 09:00 Zinc Sulfate (Zinc Sulfate) 220 mg DAILY GTB Last administered on 07/17/18 09:26; Admin Dose 220 MG; Start 07/14/18 at 09:00 Docusate Sodium (Colace Liquid Cup) 100 mg BID GTB Last administered on 07/17/18 09:24; Admin Dose 100 MG; Start 07/14/18 at 09:00 IV Flush (NS 10 ml) 10 ml PRN PRN IV IV PROTOCOL; Start 07/14/18 at 15:30 Hydralazine HCl (Apresoline) 10 mg Q4H PRN IV ELEVATED BLOOD PRESSURE Last administered on 07/17/18 02:18; Admin Dose 10 MG; Start 07/15/18 at 06:00 Lisinopril (Zestril) 20 mg BID GTB Last administered on 07/17/18 09:28; Admin Dose 20 MG; Start 07/15/18 at 10:00 Ampicillin 50 ml @ 100 mls/hr Q6 IVPB Last administered on 07/17/18 12:39; Admin Dose 100 MLS/HR; Start 07/16/18 at 18:00 Levalbuterol (Xopenex Neb) 1.25 mg Q8 PRN HHN WHEEZING Last administered on 07/16/18 14:05; Admin Dose 1.25 MG; Start 07/16/18 at 14:00 FRANCO MARTINEZ NP Jul 17, 2018 13:17
--- NOTE | 2018-07-17 13:58 | PN ---
Date/Time of Note Date/Time of Note DATE: 07/17/18 TIME: 13:50 Assessment/Plan VTE Prophylaxis Risk score (from Nsg)>0 risk: 6 SCD applied (from Nsg): Yes Pharmacological prophylaxis: LMWH Lines/Catheters IV Catheter Type (from Nrsg): PICC Line Central line still needed: Yes Urinary Cath still in place: No Assessment/Plan Hospital Course SUBJECTIVE: No acute overnight episodes. OBJECTIVE: Vital signs-see below PHYSICAL EXAM: Constitutional: Elderly, demented non verbal female, not in acute distress. Psych: Demented, unable to assess.Restless at times. Head: atraumatic, normocephalic Eyes: nl conjunctiva, nl sclera ENMT: mucosa pink and moist, nl external ears & nose Neck: non-tender, supple Respiratory: +Coarse bilaterally. Cardiovascular: nl pulses, regular rate and rhythm Gastrointestinal: non-tender, soft, bowel sounds active in all 4 quadrants. Musculoskeletal/extremities: No DP pulse bilaterally. Left foot 3r/4th toes amputed- site nectrotic/cyanotic extending to heel. no focal defecit. Neurological: obtunded/ Demented. Skin: nl turgor ASSESSMENT/PLAN: 87-year-old female with history of diabetes, CAD, hypertension, peripheral artery disease, stroke, dementia, G-tube feeding, admitted with worsening left foot gangrene from a care home. 1. Left foot gangrene with severe PAD. -Arterial studies with occluded left DP artery, distal left superficial femoral artery with reconstitution of the popliteal artery. -Unfortunately she is not a revascularization candidate and would be best served with an above-knee amputation. However at age 87 with dementia etc. the utility of pursuing that may be viewed as futile care. -Pending family decision for Hospice focused care -Continue supportive care recommended by vascular surgeon by painting the food and toes with Betadine allowing it to mummify and just keep patient comfortable. -WC w/multidrug resistant enterococcus/proteus M=>ID managing antimicrobials 2.Sepsis 2/2 #1 -stable -cont.abx 3.Severe PAD -See #1 -Continue to optimize neurovascular status with antihypertensives to keep blood pressure ~140/90, diet, nutrition, exercise, blood glucose control, and antipl atelets/anticoagulation. 4. DMII -Controlled. Continue insulin regimen. 5. Chronic anemia. -Stable H&H. Continue to monitor. 6. Chronic encephalopathy/Dementia -Continue supportive care. 7. History of CVA dysphagia with enteral feeding. - Continue G-tube feeding. -cont.vit supplements 8. Coronary artery disease. -Continue medical management. -cont. aspirin 9. Hypertension. Under control. -Continue current Antihypertensive regimen. 10. Peripheral neuropathy. -cont. gabapentin. 11. Constipation -Continue stool softeners and laxatives. 12.Osteoarthritis -cont home meds DVT prophylaxis: Lovenox PUD prophylaxis: Pepcid CODE STATUS: DNR/DNI Diet: G-tube feeding Disposition: Recommendation is discharge to SNF with hospice focus care in next 24 hours. store worker to coordinate this with the family. Overall prognosis: Poor Patient was seen in collaboration with Result Diagram: 07/16/1842107/16/18421 Exam/Review of Systems Exam Vitals Vital Signs Date Temp Pulse Resp B/P (MAP) Pulse Ox O2 O2 Flow FiO2 Time Delivery Rate 07/17/18 99.4 09:11 07/17/18 80 18 133/59 95 Nasal 08:46 (83) Cannula 07/17/18 2.0 08:25 Intake and Output 07/16/18 07/16/18 07/17/18 1515:00 23:00 07:00 IntakeIntake Total 350 ml 1260 ml BalanceBalance 350 ml 1260 ml Medications Medication Current Medications Sodium Chloride 1,000 ml @ 80 mls/hr [id number] IV Last administered on 07/17/18at 06:16; Admin Dose 80 MLS/HR; Start 07/12/18 at 05:15 IV Flush (NS 3 ml) 3 ml PER PROTOCOL IV ; Start 07/12/18 at 05:30 Ondansetron HCl (Zofran Inj) 4 mg Q6H PRN IV NAUSEA/VOMITING; Start 07/12/18 at 05:30 Acetaminophen (Tylenol Supp) [address] .PAIN 1-3 OR TEMP Last administered on 07/17/18at 08:26; Admin Dose 650 MG; Start 07/12/18 at 05:30 Morphine Sulfate (morphine) 1 mg Q4H PRN IV .SEVERE PAIN 7-10 Last administered on 07/17/18at 01:55; Admin Dose 1 MG; Start 07/12/18 at 05:30 Miscellaneous Information (Pending Santyl Order For Wound Care) This patient crandall... PRN PRN XX WOUND CARE; Start 07/12/18 at 07:30 Collagenase (Santyl) 1 applic DAILY TOP Last administered on 07/17/18 09:30; Admin Dose 1 APPLIC; Start 07/12/18 at 09:00 Collagenase (Santyl) 1 applic PRN PRN TOP WHEN SOILED; Start 07/12/18 at 07:30 Mupirocin (Bactroban) 1 applic BID TOP Last administered on 07/17/18 09:32; Admin Dose 1 APPLIC; Start 07/12/18 at 13:30 Ranitidine HCl (Zantac) 150 mg BID GTB Last administered on 07/17/18 09:25; Ad min Dose 150 MG; Start 07/12/18 at 21:00 Senna (Senokot) 2 tab QHS GTB Last administered on 07/16/18 21:36; Admin Dose 2 TAB; Start 07/12/18 at 21:00 Tramadol HCl (Ultram) 50 mg Q12 PRN GTB PAIN Last administered on 07/14/18 06:17; Admin Dose 50 MG; Start 07/12/18 at 20:30 Amlodipine Besylate (Norvasc) 5 mg DAILY PO Last administered on 07/17/18 09:28; Admin Dose 5 MG; Start 07/12/18 at 22:00 Aspirin (Aspirin) 81 mg DAILY PO Last administered on 07/17/18 09:25; Admin Dose 81 MG; Start 07/13/18 at 12:30 Gabapentin (Neurontin) 300 mg Q8 GTB Last administered on 07/17/18 13:46; Admin Dose 300 MG; Start 07/13/18 at 14:00 Metoprolol Tartrate (Lopressor) 50 mg BID GTB Last administered on 07/17/18 09:28; Admin Dose 50 MG; Start 07/13/18 at 21:00 Multivitamins/ Minerals (Theragran-M) 1 tab DAILY PO Last administered on 07/17/18 09:24; Admin Dose 1 TAB; Start 07/14/18 at 09:00 Enoxaparin Sodium (Lovenox) 30 mg DAILY SC Last administered on 07/17/18 09:31; Admin Dose 30 MG; Start 07/14/18 at 09:00 Famotidine (Pepcid) 20 mg HS GTB Last administered on 07/16/18 21:36; Admin Dose 20 MG; Start 07/13/18 at 21:00 Ascorbic Acid (Vitamin C) 500 mg DAILY GTB Last administered on 07/17/18 09:25; Admin Dose 500 MG; Start 07/14/18 at 09:00 Zinc Sulfate (Zinc Sulfate) 220 mg DAILY GTB Last administered on 07/17/18 09:26; Admin Dose 220 MG; Start 07/14/18 at 09:00 Docusate Sodium (Colace Liquid Cup) 100 mg BID GTB Last administered on 07/17/18 09:24; Admin Dose 100 MG; Start 07/14/18 at 09:00 IV Flush (NS 10 ml) 10 ml PRN PRN IV IV PROTOCOL; Start 07/14/18 at 15:30 Hydralazine HCl (Apresoline) 10 mg Q4H PRN IV ELEVATED BLOOD PRESSURE Last administered on 07/17/18 02:18; Admin Dose 10 MG; Start 07/15/18 at 06:00 Lisinopril (Zestril) 20 mg BID GTB Last administered on 07/17/18 09:28; Admin Dose 20 MG; Start 07/15/18 at 10:00 Ampicillin 50 ml @ 100 mls/hr Q6 IVPB Last administered on 07/17/18 12:39; Admin Dose 100 MLS/HR; Start 07/16/18 at 18:00 Levalbuterol (Xopenex Neb) 1.25 mg Q8 PRN HHN WHEEZING Last administered on 07/16/18 14:05; Admin Dose 1.25 MG; Start 07/16/18 at 14:00 Levofloxacin (Levaquin) 250 mg DAILY@06 GTB ; Start 07/18/18 at 06:00 Levofloxacin (Levaquin) 500 mg ONCE ONCE GTB Last administered on 07/17/18 13:46; Admin Dose 500 MG; Start 07/17/18 at 14:00; Stop 07/17/18 at 14:01 BROCK MONTGOMERY NP Jul 17, 2018 13:58
[2018-07-17] MEDS ORDERED: LEVOFLOXACIN 500 MG TAB GTB ONE (14:00)
[2018-07-17 15:48] VITALS: BP 113/57; PULSE 104; RESP 18
[2018-07-17 20:00] VITALS: BP 123/74; PULSE 96; RESP 18
[2018-07-17] MEDS: FAMOTIDINE 20 MG TAB GTB SCH (20:25)
[2018-07-17] MEDS: SENNA TAB GTB SCH (20:25)
[2018-07-18] MEDS: AMPICILLIN 1 GM/NS (PMX) 50 ML IVPB SCH ×4 (00:23→18:00)
[2018-07-18 02:00] VITALS: BP 121/58; PULSE 63; RESP 18
[2018-07-18] MEDS ORDERED: LEVOFLOXACIN 250 MG TAB GTB SCH (06:00)
[2018-07-18] MEDS: GABAPENTIN 300 MG CAP GTB SCH ×2 (06:16→13:23)
[2018-07-18 07:58] VITALS: BP 149/96; PULSE 72; RESP 18
[2018-07-18] MEDS: ENOXAPARIN 30 MG/0.3 ML SYG SC SCH (08:54)
[2018-07-18] MEDS: AMLODIPINE 5 MG TAB PO SCH (08:55)
[2018-07-18] MEDS: RANITIDINE 150 MG TAB GTB SCH (08:55)
[2018-07-18] MEDS: MULTIVITAMINS/MINERALS TAB PO SCH (08:55)
[2018-07-18] MEDS: ASPIRIN 81 MG TAB PO SCH (08:55)
[2018-07-18] MEDS: ZINC SULFATE 220 MG CAP GTB SCH (08:55)
[2018-07-18] MEDS: ASCORBIC ACID 500 MG TAB GTB SCH (08:56)
[2018-07-18] MEDS: DOCUSATE SODIUM 10 MG/ML (10ML CUP) GTB SCH (08:56)
[2018-07-18] MEDS: METOPROLOL 50 MG TAB GTB SCH (08:57)
[2018-07-18] MEDS: COLLAGENASE 5 GM (UD JAR) TOP SCH (08:57)
[2018-07-18] MEDS: MUPIROCIN 2% 22 GM OINT TOP SCH (09:16)
[2018-07-18] MEDS: LISINOPRIL 20 MG TAB GTB SCH (09:19)
--- NOTE | 2018-07-18 13:18 | PDOCDIS ---
Discharge Instructions CONDITION [id number] Patient Condition: [id number] Stable HOME CARE INSTRUCTIONS: [id number] Diet Instructions: [id number] Regular FOLLOW UP/APPOINTMENTS Follow-up Plan discharge to SNF BROCK MONTGOMERY NP Jul 18, 2018 13:18
[2018-07-18] MEDS ORDERED: AMLO-145 PO (13:21)
[2018-07-18] MEDS ORDERED: ASC500 GTB (13:21)
[2018-07-18] MEDS ORDERED: ASPI-831 PO (13:21)
[2018-07-18] MEDS ORDERED: LEVO250T9 GTB (13:21)
[2018-07-18] MEDS ORDERED: LISI-471 GTB (13:21)
[2018-07-18] MEDS ORDERED: LEVA1.25 HHN (13:21)
[2018-07-18] MEDS ORDERED: AMPI1VIA6 IV (13:21)
[2018-07-18] MEDS: morphine 2 MG INJ IV PRN ×2 (13:26→18:23)
[2018-07-18] MEDS ORDERED: METF-849 PO (13:26)
--- NOTE | 2018-07-18 13:30 | DS ---
Date/Time of Note Date/Time of Note DATE: 07/18/18 TIME: 13:27 Discharge Summary Admission/Discharge Info Admit Date/Time Jul 12, 2018 at 04:13 Discharge Date/Time Discharge Diagnosis 1. Left foot gangrene with severe PAD. -Arterial studies with occluded left DP artery, distal left superficial femoral artery with reconstitution of the popliteal artery. -Unfortunately she is not a revascularization candidate and would be best served with an above-knee amputation. However at age 87 with dementia etc. the utility of pursuing that may be viewed as futile care. 2.STATUS POST Sepsis 2/ #1 3.Severe PAD 4. DMII 5. Chronic anemia. 6. Chronic encephalopathy/Dementia 7. History of CVA dysphagia with enteral feeding. 8. Coronary artery disease. 9. Hypertension. 10. Peripheral neuropathy. 11. Constipation 12.Osteoarthritis Patient Condition: Stable Consults Dr. Mandujano, vascular , coronary artery Dr. Adame, ID Procedures 07/12/2018. Arterial ultrasound bilateral. IMPRESSION: Occluded distal left superficial femoral artery with reconstitution of the popliteal artery. Occluded left dorsalis pedis artery. Monophasic waveforms throughout the left lower extremity suggesting aortoiliac inflow disease into the left lower extremity. Monophasic waveforms in the right dorsalis pedis artery suggesting inflow disease into the right dorsalis pedis artery. If further characterization of the arterial vasculature is needed CTA is recommended. 07/14/2018. PICC line insertion. Hospital Course 87-year-old female with history of diabetes, CAD, hypertension, peripheral artery disease, stroke, dementia, G-tube feeding, admitted with worsening left foot gangrene from a shelter. Arterial studies with occluded left DP artery, distal left superficial femoral artery with reconstitution of the popliteal artery.Unfortunately she is not a revascularization candidate and would be best served with an above-knee amputation. However at age 87 with dementia etc. the utility of pursuing that may be viewed as futile care. Family decided to pursue hospice focus care. Patient was continued on supportive wound care by painting the food and toes with Betadine allowing it to mummify and just keep patient comfortable. Patient's initial blood cultures were coagulase-negative staph likely contamination and a repeat blood culture with no growth in 24 hours. Wound culture showed Proteus mirabilis/enterococcus species and was continued on appropriate agents per ID for a total 2 weeks. ID recommended total 2 weeks and ampicillin and Levaquin. At this time, patient with stable labs and vital signs. She is not in acute distress. Patient has been accepted back to the shelter where she came from with hospice focus care. Approximately 60 minutes was spent in coordinating the discharge on this patient. Patient was seen in collaboration with Dr. Davies. Home Meds Reported Medications Sennosides* (Senna Lax*) 8.6 Mg Tablet, 2 TAB GTB QHS, TAB 07/12/18 Metoprolol Tartrate* (Lopressor*) 50 Mg Tab, 50 MG GTB BID, #60 TAB 07/12/18 Melatonin (Melatonin) 1 Mg Tablet, 2 MG GTB HS, TAB 07/12/18 Glipizide XL* (Glipizide XL*) 2.5 Mg Tab.er.24, 2.5 MG GTB DAILY, TAB 07/12/18 Arginine/Ascorbate Sod/Nellie AC (Arginaid Powder) 1 Each Powd.pack, 1 EACH GTB BID for 60 Days 07/12/18 Tamsulosin Hcl* (Tamsulosin Hcl*) 0.4 Mg Cap.er.24h, 0.4 MG GTB DAILY, CAP 07/12/18 Ranitidine Hcl* (Ranitidine Hcl*) 150 Mg Tablet, 150 MG GTB BID, #60 TAB 07/12/18 Alendronate Sodium* (Fosamax*) 70 Mg Tablet, 70 MG GTB Q7D PRN for QWED, #4 TAB 07/12/18 Gabapentin* (Gabapentin*) 300 Mg Capsule, 300 MG GTB Q8H, #60 CAP 07/12/18 Captopril* (Captopril*) 25 Mg Tablet, 25 MG GTB BID for HTN, #60 TAB 07/12/18 Tramadol Hcl* (Ultram*) 50 Mg Tablet, 50 MG GTB Q12 PRN for PAIN, TAB 07/12/18 Acetaminophen* (Acetaminophen*) 325 Mg Tablet, 650 MG GTB Q4H PRN for PAIN AND OR ELEVATED TEMP, #30 TAB 07/12/18 Cran/Vitc/Mannose/Inulin/Brom (Uti-Stat Liquid) 3,875 Mg/30 Ml Liquid, 30 ML GTB BID 07/12/18 Docusate Sodium* (Colace*) 100 Mg Capsule, 100 MG GTB BID for CONSTIPATION, #60 CAP 07/12/18 Multivitamin with Minerals (Multivitamins with Minerals) 1 Each Tablet, 1 EACH GTB DAILY, TAB 07/12/18 Discontinued Reported Medications [Same Meds Per Family] No Conflict Check 06/08/12 Enalapril (Enalapril) 10 Mg Tablet, 10 MG PO BID 05/10/12 Aspirin Ec (Aspir 81) 81 Mg Tablet., 81 MG PO DAILY 05/10/12 Follow-up Plan discharge to SNF Primary Care Provider MD ULISES Arauz VIDYA V. NP Jul 18, 2018 13:30
--- NOTE | 2018-07-18 13:49 | CONS ---
Assessment/Plan Assessment/Plan Hospital Course (Demo Recall) No events afebrile, nad Microbiology: Blood culture growing staph suspicious left foot wound culture growing Proteus, Stenotrophomonas and enterococcus species Antimicrobials: Ampicillin Levaquin Physical examination: Well-developed fragile elderly woman in no distress. Head atraumatic normocephalic sclera nonicteric vehicle mucosa dry neck is supple chest rise symmetrical breath sounds diminished bases. Heart S1-S2. Abdomen soft bowel sounds present. Extremities with bilateral lower extremities dressing intact Assessment: 1. Systemic inflammatory response syndrome 2. Left foot gangrene 3. Severe peripheral arterial disease 4. Diabetes 5. History of CVA 6. Bacteremia, poss contaminant Plan: Clinically unchanged, continue abx, prognosis guarded, needs AKA Consultation Date/Type/Reason Admit Date/Time Jul 12, 2018 at 04:13 Initial Consult Date Type of Consult id Date/Time of Note DATE: 07/18/18 TIME: 13:48 Exam/Review of Systems Exam Vitals Vital Signs Date Temp Pulse Resp B/P (MAP) Pulse Ox O2 O2 Flow FiO2 Time Delivery Rate 07/18/18 Nasal 2.0 08:30 Cannula 07/18/18 98.6 72 18 149/96 98 07:58 (113) Intake and Output 07/17/18 07/17/18 07/18/18 1515:00 23:00 07:00 IntakeIntake Total 50 ml 550 ml 1150 ml BalanceBalance 50 ml 550 ml 1150 ml Results Result Diagram: 07/16/18 0422 07/16/18 0422 Medications Medication Current Medications IV Flush (NS 3 ml) 3 ml PER PROTOCOL IV ; Start 07/12/18 at 05:30 Ondansetron HCl (Zofran Inj) 4 mg Q6H PRN IV NAUSEA/VOMITING; Start 07/12/18 at 05:30 Acetaminophen (Tylenol Supp) 650 mg Q6H PRN [place] .PAIN 1-3 OR TEMP Last administered on 07/17/18at 08:26; Admin Dose 650 MG; Start 07/12/18 at 05:30 Morphine Sulfate (morphine) 1 mg Q4H PRN IV .SEVERE PAIN 7-10 Last administered on 07/18/18at 13:26; Admin Dose 1 MG; Start 07/12/18 at 05:30 [facility]isc[facility] This patient crandall... PRN PRN XX WOUND CARE; Start 07/12/18 at 07:30 Collagenase (Santyl) 1 applic DAILY TOP Last administered on 07/18/18 08:57; Admin Dose 1 APPLIC; Start 07/12/18 at 09:00 Collagenase (Santyl) 1 applic PRN PRN TOP WHEN SOILED; Start 07/12/18 at 07:30 Mupirocin (Bactroban) 1 applic BID TOP Last administered on 07/18/18 09:16; Admin Dose 1 APPLIC; Start 07/12/18 at 13:30 Ranitidine HCl (Zantac) 150 mg BID GTB Last administered on 07/18/18 08:55; Admin Dose 150 MG; Start 07/12/18 at 21:00 Senna (Senokot) 2 tab QHS GTB Last administered on 07/17/18 20:25; Admin Dose 2 TAB; Start 07/12/18 at 21:00 Tramadol HCl (Ultram) 50 mg Q12 PRN GTB PAIN Last administered on 07/14/18 06:17; Admin Dose 50 MG; Start 07/12/18 at 20:30 Amlodipine Besylate (Norvasc) 5 mg DAILY PO Last administered on 07/18/18 08:55; Admin Dose 5 MG; Start 07/12/18 at 22:00 Aspirin (Aspirin) 81 mg DAILY PO Last administered on 07/18/18 08:55; Admin Dose 81 MG; Start 07/13/18 at 12:30 Gabapentin (Neurontin) 300 mg Q8 GTB Last administered on 07/18/18 13:23; Admin Dose 300 MG; Start 07/13/18 at 14:00 Metoprolol Tartrate (Lopressor) 50 mg BID GTB Last administered on 07/18/18 08:57; Admin Dose 50 MG; Start 07/13/18 at 21:00 Multivitamins/ Minerals (Theragran-M) 1 tab DAILY PO Last administered on 07/18/18 08:55; Admin Dose 1 TAB; Start 07/14/18 at 09:00 Enoxaparin Sodium (Lovenox) 30 mg DAILY SC Last administered on 07/18/18 08:54; Admin Dose 30 MG; Start 07/14/18 at 09:00 Famotidine (Pepcid) 20 mg HS GTB Last administered on 07/17/18 20:25; Admin Dose 20 MG; Start 07/13/18 at 21:00 Ascorbic Acid (Vitamin C) 500 mg DAILY GTB Last administered on 07/18/18 08:56; Admin Dose 500 MG; Start 07/14/18 at 09:00 Zinc Sulfate (Zinc Sulfate) 220 mg DAILY GTB Last administered on 07/18/18 08:55; Admin Dose 220 MG; Start 07/14/18 at 09:00 Docusate Sodium (Colace Liquid Cup) 100 mg BID GTB Last administered on 07/18/18 08:56; Admin Dose 100 MG; Start 07/14/18 at 09:00 IV Flush (NS 10 ml) 10 ml PRN PRN IV IV PROTOCOL; Start 07/14/18 at 15:30 Hydralazine HCl (Apresoline) 10 mg Q4H PRN IV ELEVATED BLOOD PRESSURE Last administered on 07/17/18 02:18; Admin Dose 10 MG; Start 07/15/18 at 06:00 Lisinopril (Zestril) 20 mg BID GTB Last administered on 07/18/18 09:19; Admin Dose 20 MG; Start 07/15/18 at 10:00 Ampicillin 50 ml @ 100 mls/hr Q6 IVPB Last administered on 07/18/18 13:20; Admin Dose 100 MLS/HR; Start 07/16/18 at 18:00 Levalbuterol (Xopenex Neb) 1.25 mg Q8 PRN HHN WHEEZING Last administered on 07/16/18 14:05; Admin Dose 1.25 MG; Start 07/16/18 at 14:00 Levofloxacin (Levaquin) 250 mg DAILY@06 GTB Last administered on 07/18/18 06:16; Admin Dose 250 MG; Start 07/18/18 at 06:00 FRANCO MARTINEZ NP Jul 18, 2018 13:49
[2018-07-18 14:10] VITALS: BP 119/57; PULSE 69; RESP 18
[2018-07-18 16:59] VITALS: Ht 162.6 cm; Wt 66.6 kg
[2018-07-18 20:00] VITALS: BP 148/72; PULSE 75; RESP 18
[2018-07-18] MEDS: hydrALAzine 20 MG INJ IV PRN (20:55)
[2018-07-19] MEDS ORDERED: ALENDRONATE 70 MG TAB PO SCH (06:55)
== END 2018-07-18 21:55 | DRG 872 ==
LOC: E/R 00:18 → PP2 04:13
PROVIDERS: ADMIT Family Medicine; ATTEND Family Medicine
PROC: 02H633Z Insertion of Infusion Device into Right Atrium, Percutaneous Approach (ICD-10-PCS; principal; 2018-07-14)
PROC: B54MZZA Ultrasonography of Right Upper Extremity Veins, Guidance (ICD-10-PCS; 2018-07-14)
DX: A41.9 Sepsis, unspecified organism (principal); E11.52 Type 2 diabetes mellitus with diabetic peripheral angiopathy with gangrene; I96 Gangrene, not elsewhere classified; G93.40 Encephalopathy, unspecified; I69.354 Hemiplegia and hemiparesis following cerebral infarction affecting left non-dominant side; M86.9 Osteomyelitis, unspecified; N39.0 Urinary tract infection, site not specified; E11.40 Type 2 diabetes mellitus with diabetic neuropathy, unspecified; R13.10 Dysphagia, unspecified; E11.69 Type 2 diabetes mellitus with other specified complication; I10 Essential (primary) hypertension; M19.90 Unspecified osteoarthritis, unspecified site; F03.90 Unspecified dementia, unspecified severity, without behavioral disturbance, psychotic disturbance, mood disturbance, and anxiety; Z66 Do not resuscitate; D63.8 Anemia in other chronic diseases classified elsewhere; I25.10 Atherosclerotic heart disease of native coronary artery without angina pectoris; I48.91 Unspecified atrial fibrillation; Z93.1 Gastrostomy status; I69.391 Dysphagia following cerebral infarction; E11.42 Type 2 diabetes mellitus with diabetic polyneuropathy; K59.00 Constipation, unspecified; M81.0 Age-related osteoporosis without current pathological fracture; Z89.422 Acquired absence of other left toe(s)
CPT/HCPCS: 36569; 70450; 71045; 76937; 80053; 80061; 80202; 81003; 83036; 83690; 84443; 85025; 85651; 86140; 87070; 87081; 92526; 92610; 93005; 93922; 93970; 94664; J0290; J0360; J0692; J0696; J1650; J2060; J2270; J2405; J2543; J3370; J7030; J7050